=== PATIENT | female | born 1965 | race Hispanic/Latino ===

== ENCOUNTER 2019-04-09 08:55 | Observation (INO) | payer MEDICARE, OTHER ==
[~2019-04-09] VITALS: Ht 160 cm; Wt 146.1 kg
--- OUTSIDE RECORDS SUMMARY | 2019-04-09 08:58 | XMS REPORT ---
Author Author [facility] Address Unknown Phone Unavailable Care Team Providers [facility] [employer] Name Role Phone NIKKORODRIGO ROBERT Unavailable Unavailable LAKEISHA SINGH Unavailable Unavailable Madelyn SEE Unavailable Unavailable MINH HYLTON Unavailable Unavailable Problems This patient has no known problems. Allergies, Adverse Reactions, Alerts This patient has no known allergies or adverse reactions. Medications This patient has no known medications. Results Test Description Test Time Test Comments Text Results Atomic Results Result Comments BASIC METABOLIC PANEL 2018-01-25 05:02:00 SODIUM (BEAKER) (test ovpr=139) 135 meq/L 136-145 POTASSIUM (BEAKER) (test fblh=430) 4.1 meq/L 3.5-5.1 CHLORIDE (BEAKER) (test rtuv=214) 97 meq/L 98-107 CO2 (BEAKER) (test yvuo=838) 26 meq/L 22-29 BLOOD UREA NITROGEN (BEAKER) (test nbzu=068) 58 mg/dL 7-21 CREATININE (BEAKER) (test roln=199) 8.17 mg/dL 0.57-1.25 GLUCOSE RANDOM (BEAKER) (test zsix=441) 145 mg/dL 70-105 CALCIUM (BEAKER) (test bmjl=398) 8.8 mg/dL 8.4-10.2 EGFR (BEAKER) (test kezp=5555) mL/min/1.73 sq m INSUFFICIENT CLINICAL DATA TO CALCULATE ESTIMATED GFR. [id number] 05:01:00* Test Item Value Reference Range Comments PHOSPHORUS (BEAKER) (test zcgh=035) 4.2 mg/dL 2.3-4.7 CBC W/PLT COUNT & AUTO [id number] 04:48:00* Test Item Value Reference Range Comments WHITE BLOOD CELL COUNT (BEAKER) (test mqij=751) 8.0 K/ L 3.5-10.5 RED BLOOD CELL COUNT (BEAKER) (test bbyw=326) 2.95 M/ L 3.93-5.22 HEMOGLOBIN (BEAKER) (test ovcj=027) 9.6 GM/DL 11.2-15.7 HEMATOCRIT (BEAKER) (test lnut=044) 30.5 % 34.1-44.9 MEAN CORPUSCULAR VOLUME (BEAKER) (test hnjz=850) 103.4 fL 79.4-94.8 MEAN CORPUSCULAR HEMOGLOBIN (BEAKER) (test unop=274) 32.5 pg 25.6-32.2 MEAN CORPUSCULAR HEMOGLOBIN CONC (BEAKER) (test hvqj=821) 31.5 GM/DL 32.2-35.5 RED CELL DISTRIBUTION WIDTH (BEAKER) (test zvcz=876) 15.9 % 11.7-14.4 PLATELET COUNT (BEAKER) (test byft=128) 105 K/CU MM 150-450 MEAN PLATELET VOLUME (BEAKER) (test tyap=577) 11.5 fL 9.4-12.3 NUCLEATED RED BLOOD CELLS (BEAKER) (test lvcy=363) 0 /100 WBC 0-0 NEUTROPHILS RELATIVE PERCENT (BEAKER) (test ycze=571) 68 % LYMPHOCYTES RELATIVE PERCENT (BEAKER) (test jqxf=362) 20 % MONOCYTES RELATIVE PERCENT (BEAKER) (test uvvd=273) 10 % EOSINOPHILS RELATIVE PERCENT (BEAKER) (test aoxv=940) 2 % BASOPHILS RELATIVE PERCENT (BEAKER) (test cvpr=522) 0 % NEUTROPHILS ABSOLUTE COUNT (BEAKER) (test qznd=351) 5.41 K/ L 1.56-6.13 LYMPHOCYTES ABSOLUTE COUNT (BEAKER) (test rbso=847) 1.61 K/ L 1.18-3.74 MONOCYTES ABSOLUTE COUNT (BEAKER) (test jsfb=484) 0.76 K/ L 0.24-0.36 EOSINOPHILS ABSOLUTE COUNT (BEAKER) (test kbvr=542) 0.14 K/ L 0.04-0.36 BASOPHILS ABSOLUTE COUNT (BEAKER) (test eszi=388) 0.02 K/ L 0.01-0.08 IMMATURE GRANULOCYTES-RELATIVE PERCENT (BEAKER) (test sgye=5119) 0 % 0-1 RAD, CHEST, 1 VIEW, NON [id number] 06:53:00post-operative day 1Reason for exam:->post TAVRShould this be performed at the bedside?->YesFINAL REPORT Chest one view. Clinical history: post TAVR Comparison: Chest radiograph 01/23/2018. Technique: A single frontal view of the chest was obtained. Findings:The patient is status post TAVR. The aorta is athe rosclerotic. The heart size is stable. There are low lung volumes. There is no focal pulmonary consolidation or pneumothorax. There are small bilateral pleural effusions. Signed: Floresita Ugaldeeport Verified Date/Time: 01/24/2018 0 6:53:47 Reading Location: [address] Transitional Reading Room Electronical ly signed by: FLORESITA UGALDE MD on 01/24/2018 06:53 AM BASIC METABOLIC [id number] 05:59:00* Test Item Value Reference Range Comments SODIUM (BEAKER) (test qmqf=274) 138 meq/L 136-145 POTASSIUM (BEAKER) (test pgve=473) 4.4 meq/L 3.5-5.1 CHLORIDE (BEAKER) (test mamz=079) 100 meq/L 98-107 CO2 (BEAKER) (test kejm=126) 24 meq/L 22-29 BLOOD UREA NITROGEN (BEAKER) (test pvnk=328) 26 mg/dL 7-21 CREATININE (BEAKER) (test cktb=973) 5.77 mg/dL 0.57-1.25 GLUCOSE RANDOM (BEAKER) (test tyqo=708) 125 mg/dL 70-105 CALCIUM (BEAKER) (test dusk=847) 9.6 mg/dL 8.4-10.2 EGFR (BEAKER) (test jwhj=0387) mL/min/1.73 sq m INSUFFICIENT CLINICAL DATA TO CALCULATE ESTIMATED GFR. [id number] 05:58:00* Test Item Value Reference Range Comments MAGNESIUM (BEAKER) (test pfho=886) 2.2 mg/dL 1.6-2.6 CBC W/PLT COUNT & AUTO [id number] 05:34:00* Test Item Value Reference Range Comments WHITE BLOOD CELL COUNT (BEAKER) (test ldaw=265) 8.3 K/ L 3.5-10.5 RED BLOOD CELL COUNT (BEAKER) (test gmvu=066) 3.12 M/ L 3.93-5.22 HEMOGLOBIN (BEAKER) (test xgty=080) 10.0 GM/DL 11.2-15.7 HEMATOCRIT (BEAKER) (test fmjg=351) 31.0 % 34.1-44.9 MEAN CORPUSCULAR VOLUME (BEAKER) (test hbfv=452) 99.4 fL 79.4-94.8 MEAN CORPUSCULAR HEMOGLOBIN (BEAKER) (test oxqu=376) 32.1 pg 25.6-32.2 MEAN CORPUSCULAR HEMOGLOBIN CONC (BEAKER) (test kzfl=138) 32.3 GM/DL 32.2-35.5 RED CELL DISTRIBUTION WIDTH (BEAKER) (test bxsp=293) 15.9 % 11.7-14.4 PLATELET COUNT (BEAKER) (test bczj=944) 125 K/CU MM 150-450 MEAN PLATELET VOLUME (BEAKER) (test viwe=963) 11.4 fL 9.4-12.3 NUCLEATED RED BLOOD CELLS (BEAKER) (test eney=218) 0 /100 WBC 0-0 NEUTROPHILS RELATIVE PERCENT (BEAKER) (test hegg=960) 83 % LYMPHOCYTES RELATIVE PERCENT (BEAKER) (test dzai=275) 9 % MONOCYTES RELATIVE PERCENT (BEAKER) (test ciwu=579) 7 % EOSINOPHILS RELATIVE PERCENT (BEAKER) (test tfts=535) 0 % BASOPHILS RELATIVE PERCENT (BEAKER) (test vayg=904) 1 % NEUTROPHILS ABSOLUTE COUNT (BEAKER) (test gdmw=657) 6.92 K/ L 1.56-6.13 LYMPHOCYTES ABSOLUTE COUNT (BEAKER) (test mlzp=011) 0.75 K/ L 1.18-3.74 MONOCYTES ABSOLUTE COUNT (BEAKER) (test jlpg=143) 0.55 K/ L 0.24-0.36 EOSINOPHILS ABSOLUTE COUNT (BEAKER) (test vcec=690) 0.01 K/ L 0.04-0.36 BASOPHILS ABSOLUTE COUNT (BEAKER) (test lsub=734) 0.05 K/ L 0.01-0.08 IMMATURE GRANULOCYTES-RELATIVE PERCENT (BEAKER) (test etdf=4851) 0 % 0-1 HEPATITIS B SURFACE [id number] 20:10:00* Test Item Value Reference Range Comments HEPATITIS B SURFACE ANTIGEN (2) (BEAKER) (test jwdz=5071) Nonreactive Nonreactive [id number] 15:09:00* Test Item Value Reference Range Comments MAGNESIUM (BEAKER) (test xyou=240) 2.2 mg/dL 1.6-2.6 BASIC METABOLIC [id number] 14:51:00* Test Item Value Reference Range Comments SODIUM (BEAKER) (test rpxh=980) 134 meq/L 136-145 POTASSIUM (BEAKER) (test dyib=952) 4.3 meq/L 3.5-5.1 CHLORIDE (BEAKER) (test qpps=630) 98 meq/L 98-107 CO2 (BEAKER) (test lgkw=061) 25 meq/L 22-29 BLOOD UREA NITROGEN (BEAKER) (test ympt=524) 52 mg/dL 7-21 CREATININE (BEAKER) (test pdsm=940) 9.37 mg/dL 0.57-1.25 GLUCOSE RANDOM (BEAKER) (test efxo=607) 121 mg/dL 70-105 CALCIUM (BEAKER) (test jzdw=044) 8.9 mg/dL 8.4-10.2 EGFR (BEAKER) (test lroe=3405) mL/min/1.73 sq m INSUFFICIENT CLINICAL DATA TO CALCULATE ESTIMATED GFR. RAD, CHEST, 1 VIEW, NON [id number] 13:15:00Reason for exam:->post TAVRShould this be performed at the bedside?->YesFINAL REPORT EXAM: Frontal chest radiograph HISTORY PROVIDED: Post TAVR COMPARISON: 07/27/2017 IMPRESSION:The patient is status post cardiac valve replacement. Central pulmonary vascular congestion is suspected with mild interstitial edema. A small right pleural effusion is noted. Left basilar atelectasis versus scarring is similar to the previous examination. No discernible pneumothorax. The cardiac silhouette remains enlarged. There is atherosclerotic calcification of the aorta. No acute osseous abnormality. Signed: Broderick Smitheport Verified Date/Time: 01/23/2018 13:15:10 Reading Location: [facility] Reading Room -[id number] 11:47:00* Test Item Value Reference Range Comments ACTIVATED CLOTTING TIME (BEAKER) (test tccz=035) 125 sec TESTED AT [facility] [address] [facility] [address] [id number] 11:08:00* Test Item Value Reference Range Comments ACTIVATED CLOTTING TIME (BEAKER) (test njkw=822) 246 sec TESTED AT [facility] [address] [facility] [address] SODIUM NA-STAT [id number] 10:18:00* Test Item Value Reference Range Comments SODIUM (BEAKER) (test wsky=582) 135 meq/L 135-148 GLUCOSE-STAT [id number] 10:17:00* Test Item Value Reference Range Comments GLUCOSE RANDOM (BEAKER) (test ruxc=988) 115 mg/dL 70-110 HGB/HCT (H&H) - STAT [id number] 10:17:00* Test Item Value Reference Range Comments HEMOGLOBIN (BEAKER) (test zkon=460) 10.7 GM/DL 12.0-15.0 HEMATOCRIT (BEAKER) (test xyvk=382) 31.0 % 36.0-45.0 POTASSIUM-STAT [id number] 10:17:00* Test Item Value Reference Range Comments POTASSIUM (BEAKER) (test cwwl=947) 4.1 meq/L 3.6-5.5 CALCIUM, [id number] 10:16:00* Test Item Value Reference Range Comments CALCIUM IONIZED (BEAKER) (test gfsy=171) 1.03 mmol/L 1.12-1.27 PH, BLOOD (BEAKER) (test tkyv=5345) 7.45 BLOOD GAS, [id number] 10:16:00* Test Item Value Reference Range Comments PH ARTERIAL (BEAKER) (test jvwm=716) 7.48 7.35-7.45 PCO2 ARTERIAL (BEAKER) (test wsaa=430) 36 mm Hg 35-45 PO2 ARTERIAL (BEAKER) (test kwzr=497) 219 mm Hg 80-90 O2 SATURATION ARTERIAL (BEAKER) (test ozgg=717) 99.5 % 96.0-97.0 HCO3 ARTERIAL (BEAKER) (test dlxd=053) 26 mmol/L 21-29 BASE EXCESS ARTERIAL (BEAKER) (test kxjy=537) 2.1 mmol/L -2.0-3.0 PATIENT TEMPERATURE (BEAKER) (test geqg=2849) 35.4 FIO2 (BEAKER) (test kldx=7639) 60 POCT-GLUCOSE [id number] 07:34:00* Test Item Value Reference Range Comments POC-GLUCOSE METER (BEAKER) (test ujpx=9749) 145 mg/dL 70-110 TESTED AT [facility] [address] [facility] [address] [id number] 07:27:00* Test Item Value Reference Range Comments POTASSIUM (BEAKER) (test gyhe=416) 4.3 meq/L 3.5-5.1 CT, CTA, [id number] 16:31:00Addendum BeginsREPORT STATUS:A Addendum: I agree with the previously described non vascular findings. Signed: Renee Diaz MDReport Verified Date/Time: 12/08/2017 16:31:22 Reading Location: [place] [id number] Angio Body Reading RoomAddendum EndsFINAL REPORT CT angiography of the thoracoabdominal aorta and pelvic arteries, 08 December 2016 INDICATION: This is a 52-year old female with diagnosis of aortic valve disease, presents for preprocedure TAVR assessment. There is a clinical concern of aortic aneurysm. This study is performed in an attempt to avoid an invasive procedure. TECHNIQUE: Spiral acquisition before and during intravenous contrast administration using a G[employer] CT scanner. Images were obtained before and during the dynamic passage of intravenous contrast material. Multi-planar 3-D volume-rendering reconstruction was performed using an independent workstation interactively by the interpreting physician as well as the 3-D specialist for optimal visualization of the thoracoabdominal aorta, the pelvic arteries as well as its proximal branches. Please refer to the contrast sheet scanned in the EPIC system for the amount and route of contrast given. This exam was performed according to our departmental dose-optimisation programme, which includes automated exposure control, adjustment of the mA and/or kV according to patient size and/or use of iterative reconstruction tech RoomClip. Dose modulation, iterative reconstruction, and/or weight based adjustment of the mA/kV was utilized to reduce the radiation dose to as low as reasonably achievable. FINDINGS: VASCULAR: The central pulmonary artery is at the upper mcnally its of normal in calibre. The cardiac chamber demonstrate normal atrioventricul ar and ventriculoarterial concordance, systemic and pulmonary venous return. In the mid diastolic data set, the left ventricle appears to be prominent. Left atr ial enlargement is identified. Mitral annular calcification is seen in the poste rior and anterior mitral valve annulus. Coronary origins are normal and scattere d coronary artery calcification is present. Patient has a diagnosis of aortic st enosis. Aortic valvular calcification is seen and the Agatston score is 4019. Ao rtic valve area by planimetry is estimated to be approximately 65 sq mm. The aor tic valve is tricuspid. Location of the aortic valvular calcification can be se en in reformatted data set sent to PACS. Regarding the aorta, the aortic root an d ascending thoracic aorta is free of calcification. Some calcification is seen in the proximal descending thoracic aorta and in the descending thoracic aorta. In the abdominal aorta, the infrarenal abdominal aorta, lrvn-ga-bljwyycw circumf erential calcification is identified. No acute aortic pathology is seen and no d issection or contained rupture is identified. Arch vessel branching pattern is n ormal and the visualised arch vessels are seen to be widely patent proximally. O nly minimal calcification seen in the left subclavian artery, and the left subcl hamilton artery, image 80 measure approximately 7 mm in diameter. The right ablatio n artery is also patent with no obstructive lesion identified, and measures appr oximately 8 to 9 mm at image 22. The coeliac axis, SMA, SAMARIA are widely patent. S cresencio left and right renal arteries are seen with eccentric calcific atheroscler osis identified. No stenosis is seen. Left and right renal veins are seen draini ng normally into the IVC. The common iliac, external iliac, common femoral, and the visualised superficial femoral arteries, bilaterally, are widely patent, wit h only minimal nonobstructive calcific atherosclerosis seen in the left and righ t common iliac arteries. Dimensions that may be helpful for TAVR as follows: Th e aortic root and ascending thoracic aorta is free of calcification. The major a nd minor aortic annulus diameter measures 26.4 and 20.6 mm, respectively. The ao rtic annulus perimeter measured 75 mm and the cross-sectional area measures 427 mm2. The aortic annulus diameter at the traditional LVOT and coronal LVOT measur es 20.4 and 25.7 mm, respectively. For reference purpose, per ALLEN S3 brochur e, recommendation are as follows: CT area between 273 to 345 mm2 (20 mm valve); 338 to 430 mm2 (23 mm valve); 430 to 546 mm2 (26 mm valve); 540 to 683 mm2 (29 m m valve). For reference purpose, per [employer] kenya, recommendation are as follows: CT perimeter between 56.5-62.8 mm (23 mm valve); 62.8-72.3 mm ( 26 mm valve); 72.3-81.7 mm (29 mm valve); and 81.7-94.2. mm (34 mm valve). Measu rement was made at 40% reconstruction, with lesser artifacts. Agatston Score is 4090. By planimetry, the aortic valve area is approximately 65 sq mm. The sinus of Valsalva height to the takeoff of the coronary artery origin, RCC (systole): 13.0 mmThe sinus of Valsalva height to the takeoff of the coronary artery origi n, LCC (systole): 10.6 mm The sinus of Valsalva diameter, RCC (systole): 27.1 mm The sinus of Valsalva diameter, LCC (systole): 30.9 mmThe sinus of Valsalva diam eter, NCC (systole): 30.8 mm The sinotubular junction measures 28.1 x 26.1 mm. T he aortic root angulation measures 57.4 degrees. The angle of delivery is approx imately TAJIK 17 CAU 4. The minimal and perpendicular abdominal aortic diameter me asure 11.0 and 12.7 mm, respectively. There is no evidence of thoracoabdomina l aortic aneurysm or stent placement present. The minimum and the perpendicular left common iliac artery measures 8.5 and 8.7 mm, respectively with mild tortuo sity and minimal focal calcific atherosclerosis present. The minimum and the pe rpendicular left external iliac artery measures 6.7 and 7.5 mm, respectively wit h dkzv-xx-yslcmmms tortuosity and no calcific atherosclerosis present. The min imum and the perpendicular left femoral artery measures 7.3 and 7.8 mm, respecti vely with no tortuosity and no calcific atherosclerosis present. The takeoff of the left SFA is at the lower half of the left femoral head, at image 550. The minimum and the perpendicular right common iliac artery measures 7.7 and 7.8 mm, respectively with mild tortuosity and minimal calcific atherosclerosis prese nt. The minimum and the perpendicular right external iliac artery measures 6.8 and 7.6 mm, respectively with wypy-dr-xndabrbc tortuosity and no calcific athe rosclerosis present. The minimum and the perpendicular right femoral artery kvng ures 6.5 and 7.7 mm, respectively with minimal tortuosity and mild calcific at herosclerosis present. The takeoff of the right SFA, is at the mid half of the r ight femoral neck, at image 548. NONVASCULAR: The visualised thyroid gland is u nremarkable though some hypodensity is seen in the right thyroid lobe at image 2 4, measure 6 mm. As this is less than 1 cm, it is considered not clinically sign ificant. The chest wall and mediastinum has no acute abnormalities identified. S mall lymph nodes are seen considered nonspecific in nature. In the lung windows, no obvious endobronchial lesion is seen and no pleural effusion is identified. Some subsegmental atelectatic changes are seen. Overall, no suspicious pulmonary nodule is identified. Some subsegmental atelectatic changes are seen. In the ab domen, the liver and spleen appears unremarkable. The liver edge is smooth. No a bnormal enhancing structure is identified. The adrenal glands are not enlarged. The gallbladder, pancreas appears unremarkable. No acute renal pathology is iden tified and no hydronephrosis or perirenal fluid collection is seen. Renal vascul ar calcification is identified bilaterally. There are number of small cysts iden tified in both kidneys, the numbers are too many to described. Some are too smal l to characterise. The larger one has water density indicating simple in nature. Bowel is not well assessed by CT angiography as enteric contrast is not given. No obvious bowel dilation is identified. Fat-containing inguinal hernia is ident ified in the right. The appendix appears unremarkable. The bladder is not diste nded. The uterus is identified and no abnormal adnexal masses seen though CT is not optimized in the assessment of pelvic gynecological structures. No free air or free fluid seen in the abdomen and pelvis. In the bony windows, no acute bon y pathology is identified and some mild degenerative changes are noted. CONCLUSI ONS: 1. Patient has a diagnosis of aortic stenosis. Aortic valve is tricuspid. Agatston score is over 4000. Aortic valve area is approximately 65 sq mm. Substa ntial mitral annular calcification is seen in the anterior and posterior mitral valve leaflet. No calcification seen in the aortic root and ascending thoracic a carolyn. No ectasia or aneurysmal dilation or acute aortic pathology is identified. Dimensions that may be helpful for TAVR as described above. 2. Normal coronary artery origins. Coronal artery calcification. Left ventricular enlargement. 3. No acute pulmonary pathology. 4. Other findings as described above. 5. An add endum will be dictated by the Terminal Gauger Radiologist regarding the nonvascular f indings. Signed: James Bell Verified Date/Time: 12/08/2017 14:13 :43 Reading Location: [place] [id number] Cardiology MRI , CTA [id number] 16:31:00 Addendum BeginsREPORT STATUS:A Addendum: I agree with hayes padilla previously described non vascular findings. Signed: Renee Diaz Verif ied Date/Time: 12/08/2017 16:31:22 Reading Location: [place] [id number] Angio Body [place] ding RoomAddendum EndsFINAL REPORT CT angiography of the thoracoabdominal aorta and pelvic arteries, 08 December 2016 INDICATION: This is a 52-year old female with diagnosis of aortic valve disease, presents for prepro cedure TAVR assessment. There is a clinical concern of aortic aneurysm. This gwen dy is performed in an attempt to avoid an invasive procedure. TECHNIQUE: Spiral acquisition before and during intravenous contrast administration using a [employer] CT scanner. Images were obtained before and during the dynamic passage of intr avenous contrast material. Multi-planar 3-D volume-rendering reconstruction was performed using an independent workstation interactively by the interpreting afua chery as well as the 3-D specialist for optimal visualization of the thoracoabd ominal aorta, the pelvic arteries as well as its proximal branches. Please refer to the contrast sheet scanned in the EPIC system for the amount and route of co ntrast given. This exam was performed according to our departmental dose-optimis ation programme, which includes automated exposure control, adjustment of the mA and/or kV according to patient size and/or use of iterative reconstruction tech nique. Dose modulation, iterative reconstruction, and/or weight based adjustment of the mA/kV was utilized to reduce the radiation dose to as low as reasonably achievable. FINDINGS: VASCULAR: The central pulmonary artery is at the upper mcnally its of normal in calibre. The cardiac chamber demonstrate normal atrioventricul ar and ventriculoarterial concordance, systemic and pulmonary venous return. In the mid diastolic data set, the left ventricle appears to be prominent. Left atr ial enlargement is identified. Mitral annular calcification is seen in the poste rior and anterior mitral valve annulus. Coronary origins are normal and scattere d coronary artery calcification is present. Patient has a diagnosis of aortic st enosis. Aortic valvular calcification is seen and the Agatston score is 4019. Ao rtic valve area by planimetry is estimated to be approximately 65 sq mm. The aor tic valve is tricuspid. Location of the aortic valvular calcification can be se en in reformatted data set sent to PACS. Regarding the aorta, the aortic root an d ascending thoracic aorta is free of calcification. Some calcification is seen in the proximal descending thoracic aorta and in the descending thoracic aorta. In the abdominal aorta, the infrarenal abdominal aorta, mcpi-vk-akkyeakl circumf erential calcification is identified. No acute aortic pathology is seen and no d issection or contained rupture is identified. Arch vessel branching pattern is n ormal and the visualised arch vessels are seen to be widely patent proximally. O nly minimal calcification seen in the left subclavian artery, and the left subcl hamilton artery, image 80 measure approximately 7 mm in diameter. The right ablatio n artery is also patent with no obstructive lesion identified, and measures appr oximately 8 to 9 mm at image 22. The coeliac axis, SMA, SAMARIA are widely patent. S cresencio left and right renal arteries are seen with eccentric calcific atheroscler osis identified. No stenosis is seen. Left and right renal veins are seen draini ng normally into the IVC. The common iliac, external iliac, common femoral, and the visualised superficial femoral arteries, bilaterally, are widely patent, wit h only minimal nonobstructive calcific atherosclerosis seen in the left and righ t common iliac arteries. Dimensions that may be helpful for TAVR as follows: Th e aortic root and ascending thoracic aorta is free of calcification. The major a nd minor aortic annulus diameter measures 26.4 and 20.6 mm, respectively. The ao rtic annulus perimeter measured 75 mm and the cross-sectional area measures 427 mm2. The aortic annulus diameter at the traditional LVOT and coronal LVOT measur es 20.4 and 25.7 mm, respectively. For reference purpose, per ALLEN Jass padilla, recommendation are as follows: CT area between 273 to 345 mm2 (20 mm valve); 338 to 430 mm2 (23 mm valve); 430 to 546 mm2 (26 mm valve); 540 to 683 mm2 (29 m m valve). For reference purpose, per [employer] k[place], recommendation are as follows: CT perimeter between 56.5-62.8 mm (23 mm valve); 62.8-72.3 mm ( 26 mm valve); 72.3-81.7 mm (29 mm valve); and 81.7-94.2. mm (34 mm valve). Measu rement was made at 40% reconstruction, with lesser artifacts. Agatston Score is 4090. By planimetry, the aortic valve area is approximately 65 sq mm. The sinus of Valsalva height to the takeoff of the coronary artery origin, RCC (systole): 13.0 mmThe sinus of Valsalva height to the takeoff of the coronary artery origi n, LCC (systole): 10.6 mm The sinus of Valsalva diameter, RCC (systole): 27.1 mm The sinus of Valsalva diameter, LCC (systole): 30.9 mmThe sinus of Valsalva diam eter, NCC (systole): 30.8 mm The sinotubular junction measures 28.1 x 26.1 mm. T he aortic root angulation measures 57.4 degrees. The angle of delivery is approx imately TAJIK 17 CAU 4. The minimal and perpendicular abdominal aortic diameter me asure 11.0 and 12.7 mm, respectively. There is no evidence of thoracoabdomina l aortic aneurysm or stent placement present. The minimum and the perpendicular left common iliac artery measures 8.5 and 8.7 mm, respectively with mild tortuo sity and minimal focal calcific atherosclerosis present. The minimum and the pe rpendicular left external iliac artery measures 6.7 and 7.5 mm, respectively wit h gbwa-ui-gnzaloet tortuosity and no calcific atherosclerosis present. The min imum and the perpendicular left femoral artery measures 7.3 and 7.8 mm, respecti vely with no tortuosity and no calcific atherosclerosis present. The takeoff of the left SFA is at the lower half of the left femoral head, at image 550. The minimum and the perpendicular right common iliac artery measures 7.7 and 7.8 mm, respectively with mild tortuosity and minimal calcific atherosclerosis prese nt. The minimum and the perpendicular right external iliac artery measures 6.8 and 7.6 mm, respectively with mvsj-cw-jawlcpzi tortuosity and no calcific athe rosclerosis present. The minimum and the perpendicular right femoral artery kvng ures 6.5 and 7.7 mm, respectively with minimal tortuosity and mild calcific at herosclerosis present. The takeoff of the right SFA, is at the mid half of the r ight femoral neck, at image 548. NONVASCULAR: The visualised thyroid gland is u nremarkable though some hypodensity is seen in the right thyroid lobe at image 2 4, measure 6 mm. As this is less than 1 cm, it is considered not clinically sign ificant. The chest wall and mediastinum has no acute abnormalities identified. S mall lymph nodes are seen considered nonspecific in nature. In the lung windows, no obvious endobronchial lesion is seen and no pleural effusion is identified. Some subsegmental atelectatic changes are seen. Overall, no suspicious pulmonary nodule is identified. Some subsegmental atelectatic changes are seen. In the ab domen, the liver and spleen appears unremarkable. The liver edge is smooth. No a bnormal enhancing structure is identified. The adrenal glands are not enlarged. The gallbladder, pancreas appears unremarkable. No acute renal pathology is iden tified and no hydronephrosis or perirenal fluid collection is seen. Renal vascul ar calcification is identified bilaterally. There are number of small cysts iden tified in both kidneys, the numbers are too many to described. Some are too smal l to characterise. The larger one has water density indicating simple in nature. Bowel is not well assessed by CT angiography as enteric contrast is not given. No obvious bowel dilation is identified. Fat-containing inguinal hernia is ident ified in the right. The appendix appears unremarkable. The bladder is not diste nded. The uterus is identified and no abnormal adnexal masses seen though CT is not optimized in the assessment of pelvic gynecological structures. No free air or free fluid seen in the abdomen and pelvis. In the bony windows, no acute bon y pathology is identified and some mild degenerative changes are noted. CONCLUSI ONS: 1. Patient has a diagnosis of aortic stenosis. Aortic valve is tricuspid. Agatston score is over 4000. Aortic valve area is approximately 65 sq mm. Substa ntial mitral annular calcification is seen in the anterior and posterior mitral valve leaflet. No calcification seen in the aortic root and ascending thoracic a carolyn. No ectasia or aneurysmal dilation or acute aortic pathology is identified. Dimensions that may be helpful for TAVR as described above. 2. Normal coronary artery origins. Coronal artery calcification. Left ventricular enlargement. 3. No acute pulmonary pathology. 4. Other findings as described above. 5. An add endum will be dictated by the Terminal [facility] Radiologist regarding the nonvascular f indings. Signed: James Bell MDReport Verified Date/Time: 12/08/2017 14:13 :43 Reading Location: [place] [address] Cardiology MRI UE [id number] 15:10:00Surgical Pathology Report Case: [id number] Authorizing Provider: Lakeisha Singh MD Collected: 08/02/2017 1257 Ordering Location: [facility] ENDOSCOPY [facility] Received: 08/02/2017 1558 Pathologist: Gabino Souza MD Specimens: A) - Polyp, Colon - Right/Ascending, Ascending colon polyp B) - Polyp, Colon - Left/Descending, Descending colon polyp A. ASCENDING COLON POLYP,BIOPSY- FRAGMENTS OF TUBULAR ADENOMA- NO HIGH-GRADE DYSPLASIA AND NO MALIGNANCY IDENTIFIEDB. LEFT DESCENDING COLON POLYP,BIOPSY- FRAGMENTS OF TUBULAR ADENOMA- NO HIGH-GRADE DYSPLASIA AND NO MALIGNANCY IDENTIFIED Signing Pathologist Direct Phone Line: [phone] of colon polypA. Ascending colon polyp; B. Left descending colon polyp The specimen is received in two containers of formalin both labeled with the pat ient's information.Specimen A labeled "ascending colon polyp" consists of two ro und fragments of interiano tissue measuring 0.3 and 0.4 cm, submitted A1. Specimen B l abeled "left descending colon polyp" consists of a 0.2 cm fragment of interiano tissue , submitted B1. CG/pl A. Sections reveal fragments of tubular adenoma with gland s showing proliferation of adenomatous epithelium with nuclear stratification. The lamina propria has mildly increased chronic inflammation. High-grade dyspla latosha and malignancy are not seen.B. Sections reveal pieces of tubular adenoma wi th glands showing proliferation of adenomatous epithelium with nuclear stratific ation. The lamina propria has mildly increased acute and chronic inflammation. High-grade dysplasia and malignancy are not seen.POCT-GLUCOSE [id number] 13:38:00* Test Item Value Reference Range Comments POC-GLUCOSE METER (BEAKER) (test lxdm=3973) 77 mg/dL 70-110 [address]ED AT [address] [address] HCG, QUANTITATIVE, [id number] 13:04:00* Test Item Value Reference Range Comments GONADOTROPIN, CHORIONIC (HCG) QUANT (BEAKER) (test odwa=213) < mIU/mL 0-10 Non- Females: <10 mIU/mL Females: Gestation Age Reference Range(mIU/mL) 0.2-1 Week 5-50 1-2 Weeks 50-500 2-3 Weeks 100-5,000 3-4 Weeks 500-10,000 4-5 Weeks 1,000-50,000 5-6 Weeks 10,000-100,000 6-8 Weeks 15,000-200,000 2-3 Months 10,000-100,000 POTASSIUM-STAT LAB 2017-08-02 11:50:00* Test Item Value Reference Range Comments POTASSIUM (BEAKER) (test sbfj=295) 3.6 meq/L 3.6-5.5 POCT-GLUCOSE [id number] 11:35:00* Test Item Value Reference Range Comments POC-GLUCOSE METER (BEAKER) (test cczh=2339) 92 mg/dL 70-110 TESTED AT [address] [address] BASIC METABOLIC [id number] 10:17:00* Test Item Value Reference Range Comments SODIUM (BEAKER) (test otnu=306) 137 meq/L 135-148 POTASSIUM (BEAKER) (test yvrs=726) 3.9 meq/L 3.6-5.5 CHLORIDE (BEAKER) (test wxcw=555) 95 meq/L 98-106 CO2 (BEAKER) (test axhe=476) 26 meq/L 24-32 BLOOD UREA NITROGEN (BEAKER) (test eblc=009) 45 mg/dL 10-26 CREATININE (BEAKER) (test zafb=102) 8.73 mg/dL 0.50-1.20 GLUCOSE RANDOM (BEAKER) (test xola=894) 128 mg/dL 70-110 CALCIUM (BEAKER) (test eale=112) 9.3 mg/dL 8.5-10.5 EGFR (BEAKER) (test mskx=5867) mL/min/1.73 sq m INSUFFICIENT CLINICAL DATA TO CALCULATE ESTIMATED GFR. CBC W/PLT COUNT & AUTO [id number] 10:10:00* Test Item Value Reference Range Comments WHITE BLOOD CELL COUNT (BEAKER) (test axxo=685) 7.6 10e3/ L 4.0-10.0 RED BLOOD CELL COUNT (BEAKER) (test iwaw=512) 3.59 10e6/ L 4.00-5.00 HEMOGLOBIN (BEAKER) (test mami=236) 11.4 g/dL 12.0-15.0 HEMATOCRIT (BEAKER) (test wdve=855) 34.2 % 36.0-45.0 MEAN CORPUSCULAR VOLUME (BEAKER) (test mnii=777) 95.4 fL 82.0-99.0 MEAN CORPUSCULAR HEMOGLOBIN (BEAKER) (test fanz=381) 31.8 pg 27.0-33.0 MEAN CORPUSCULAR HEMOGLOBIN CONC (BEAKER) (test yscl=379) 33.3 g/dL 32.0-36.0 RED CELL DISTRIBUTION WIDTH (BEAKER) (test tpds=278) 14.1 % 10.3-14.2 PLATELET COUNT (BEAKER) (test bhtj=541) 166 10e3/ L 150-430 MEAN PLATELET VOLUME (BEAKER) (test nmnt=076) 9.3 fL 6.5-10.5 NEUTROPHILS RELATIVE PERCENT (BEAKER) (test ccqd=929) 76 % LYMPHOCYTES RELATIVE PERCENT (BEAKER) (test aktc=186) 18 % MONOCYTES RELATIVE PERCENT (BEAKER) (test mtyq=579) 5 % EOSINOPHILS RELATIVE PERCENT (BEAKER) (test yevo=031) 1 % BASOPHILS RELATIVE PERCENT (BEAKER) (test mlvb=171) 0 % NEUTROPHILS ABSOLUTE COUNT (BEAKER) (test qnqz=162) 5.78 10e3/ L 1.80-8.00 LYMPHOCYTES ABSOLUTE COUNT (BEAKER) (test cqvz=023) 1.34 10e3/ L 1.48-4.50 MONOCYTES ABSOLUTE COUNT (BEAKER) (test zueb=070) 0.37 10e3/ L 0.00-1.30 EOSINOPHILS ABSOLUTE COUNT (BEAKER) (test jaro=791) 0.08 10e3/ L 0.00-0.50 BASOPHILS ABSOLUTE COUNT (BEAKER) (test mhwt=730) 0.03 10e3/ L 0.00-0.20 CT, BRAIN, WITHOUT [id number] 09:42:00Reason for exam:->DIZZINESSs/p dialysis on tuesday has been feeling dizzy, reports fell on tuesday and hit head. denies loc. What is the patient's sedation requirement?->No SedationFINAL REPORT CT Head without contrast CLINICAL HISTORY: D IZZINESSdizziness TECHNIQUE: Contiguous axial images through the head without co ntrast. This exam was performed according to the departmental dose optimization program which includes automated exposure control, adjustment of the mA and/or k V according to the patient size, and/or use of an iterative reconstruction techn ique. COMPARISON: 07/05/2017 FINDINGS: There is no CT evidence of acute infarct or intracranial hemorrhage. There is mild periventricular and subcortical white matter hypodensity which is nonspecific but compatible with chronic microvascula r ischemic change. There are atherosclerotic calcifications of the intracranial circulation. There is mild generalized sulcal prominence without hydrocephalus, midline shift, or apparent mass effect. A few scattered sulcal calcifications ar e unchanged and possibly cordage sales representative of chronic granulomatous disease. There are no extra-axial fluid collections. The skull is intact. There is a right maxi llary sinus mucus retention cyst or polyp. IMPRESSION: No CT evidence of acute infarct, hemorrhage, or hydrocephalus. Other chronic-appearing findings as descr ibed above are grossly unchanged. Signed: Sandor Senior MDReport Verified Date/T geovany: 07/27/2017 09:42:22 Reading Location: [facility] C0[facility] Neuro Reading Room , CHEST, PA OR AP, 1 [id number] 09:38:00Reason for exam:->DIZZINESSs/p dialysis on tuesday has been feeling dizzy, reports fell on tuesday and hit head. denies loc.FINAL REPORT Chest one view. Clinical history: DIZZINESS Comparison: July 05, 2017 Discussion: A frontal chest is provided. Cardiac silhouette is enlarged. Aorta is mildly calcified. There is mild vascular congestion and interstitial edema. No discrete consolidation is identified. No pneumothorax, or large effusion. Osseous structures demonstrate degenerative changes. Signed: Haley Long Verified Date/Time: 07/27/2017 09:38:11 Reading Location: [facility] Radiology Reading Room B-TYPE NATRIURETIC FACTOR (BNP)2017-07-05 18:59:00* Test Item Value Reference Range Comments B-TYPE NATRIURETIC PEPTIDE (BEAKER) (test rzqn=879) 827 pg/mL 0-100 RAD, CHEST, 2 [id number] 18:32:00Reason for exam:->coughpatient c/o hypertension 207/101,upper abdominal pain with vomiting and coughFINAL REPORT HISTORY : cough. Comparison: 01/21/2009 Comment: Two views of the chest, PA and lateral, were obtained. The cardiac silhouette is enlarged. There is no pleural effusion, pneumothorax or infiltrate. No lytic or blastic abnormalities. There is a tortuous/ectatic thoracic aorta with some atherosclerotic calcification. Multilevel degenerative disc changes of the thora cic spine are seen. Impression: 1. Enlarged cardiac silhouette size. 2. Tortuous /ectatic thoracic aorta. Signed: Leonor Darling MDReport Verified Date/Time: 06/19 18:32:11 Reading Location: [facility] C013W Consult Reading Room Electr onically signed by: LEONOR DARLING M.D. on 07/05/2017 06:[address], BRAIN, WITHOUT [id number] 18:25:00FINAL REPORT CT head without contrast INDICATION: Focal neurologic deficit, severe headache, hypertension. TECHNIQUE: Axial noncontrast CT images through the head were obtained. This exam was performed according to our departmental dose optimization program which includes automated exposure control, adjustment of the mA and/or kV according to patient size and/or use of iterative reconstruction technique. COMPARISON: CT head 01/21/2009 FINDINGS:There is no acute intracranial hemorrhage or mass effect. Microvascular ischemic changes are chronic appearing, including in the right thalamus. A few punctate calcifications may be due to atheroemboli, cavernomas, or granulomatous disease. Please note that CT is insensitive for early or small infarcts. Generalized volume loss and vascular calcifications are noted. There is no hydrocephalus or midline shift. There is right asymmetric sinus mucosal disease with polypoid right maxillary sinus changes. The mastoid air cells are well aerated. Cataract surgery changes are noted with proptotic globes. The calvarium is intact. IMPRESSION: No acute intracranial hemorrhage or mass effect. Chronic appearing microvascular and involutional changes. Chronic polypoid sinus mucosal disease. Consider ENT follow up. If there is persistent concern for acute abnormality, MRI is advised. Signed: Teresa Madison [facility] Verified Date/Time: 07/05/2017 18:25:18 Reading Location: [facility] Radiology Reading Room , [id number] 18:25:00FINAL REPORT HISTORY : Flank pain, recurrent stone disease suspectedno oral contrast; no iv contrast Technique: Multiple axial images of the abdomen and pelvis were performed without the administration of IV contrast from the lung bases to the pubic symphysis. This exam was performed according to our departmental dose optimization program which includes automated exposure co ntrol, adjustment of the mA and/or kV according to patient size and/or use of it erative reconstructive technique. COMPARISON : None COMMENT : The lung bases are clear. There is cardiomegaly. The visualized liver, adrenal glands, gallbladde r, pancreas and duodenum are within normal limits. There are splenic granulomata . The kidneys are atrophic. There are several bilateral renal cysts and too smal l to characterize renal hypodensities but which likely represent cysts. The larg est is seen arising from the lower pole of the left kidney measuring up to 1.8 c m. There is a tiny 2 mm stone in the right kidney. No ureteral stones are identi fied. There is atherosclerotic vascular disease. There is no abdominal, retroper itoneal or pelvic lymphadenopathy. Multilevel degenerative disc changes of the t horacolumbar spine are seen. There is no free fluid or free air in the abdomen o r pelvis. No findings of any bowel obstruction. The small bowel is within normal limits. There is colonic diverticulosis. There are no CT findings to suggest di verticulitis, however. The appendix is visualized and is within normal limits. The kidneys are atrophic. No adnexal masses/lesions are appreciated. There is a small right-sided fat-containing inguinal hernia. No bowel contents are seen wit hin the hernias, however. Impression: Tiny 2 mm right renal stone. No ureter al stones are seen. There is no hydronephrosis/hydroureter. Please see above for details. Signed: Leonor Darlingeport Verified Date/Time: 07/05/2017 18:25:43 Reading Location: [address] Consult Reading Room D [id number] 18:22:00* Test Item Value Reference Range Comments RAPID CKMB (BEAKER) (test bqst=6107) 1.9 ng/mL 0.0-4.3 RAPID [id number] 18:22:00* Test Item Value Reference Range Comments RAPID MYOGLOBIN (BEAKER) (test nljp=3430) > ng/mL <107 RAPID TROPONIN [id number] 18:22:00* Test Item Value Reference Range Comments RAPID TROPONIN I (BEAKER) (test vhnp=9145) < ng/mL <0.05 [id number] 18:20:00* Test Item Value Reference Range Comments PROTIME (BEAKER) (test vhbf=116) 10.7 seconds 9.8-12.0 INR (BEAKER) (test uvhc=803) 1.0 <=5.9 PARTIAL THROMBOPLASTIN TIME (BEAKER) (test navb=126) 24.9 seconds 25.8-34.5 RECOMMENDED COUMADIN/WARFARIN INR THERAPY RANGESSTANDARD DOSE: 2.0 - 3.0 Inclu lissy: PROPHYLAXIS for venous thrombosis, systemic embolization; TREATMENT for rosario ous thrombosis and/or pulmonary embolus.HIGH RISK: Target INR is 2.5-3.5 for pat ients with mechanical heart valves.BASIC METABOLIC [id number] 18:13:00* Test Item Value Reference Range Comments SODIUM (BEAKER) (test mjrh=583) 137 meq/L 135-148 POTASSIUM (BEAKER) (test dnnc=099) 3.8 meq/L 3.6-5.5 CHLORIDE (BEAKER) (test ypui=610) 95 meq/L 98-106 CO2 (BEAKER) (test figi=853) 29 meq/L 24-32 BLOOD UREA NITROGEN (BEAKER) (test asvp=571) 33 mg/dL 10-26 CREATININE (BEAKER) (test eyva=922) 7.27 mg/dL 0.50-1.20 GLUCOSE RANDOM (BEAKER) (test yvde=978) 101 mg/dL 70-110 CALCIUM (BEAKER) (test ellb=107) 9.3 mg/dL 8.5-10.5 EGFR (BEAKER) (test nmkb=8544) mL/min/1.73 sq m INSUFFICIENT CLINICAL DATA TO CALCULATE ESTIMATED GFR. [id number] 18:04:00* Test Item Value Reference Range Comments MAGNESIUM (BEAKER) (test qztk=683) 2.5 mg/dL 1.5-3.0 HEPATIC FUNCTION [id number] 18:04:00* Test Item Value Reference Range Comments TOTAL PROTEIN (BEAKER) (test ilmm=018) 8.5 gm/dL 6.0-8.5 ALBUMIN (BEAKER) (test pekc=7096) 4.4 g/dL 3.5-5.0 BILIRUBIN TOTAL (BEAKER) (test dyur=687) 1.0 mg/dL 0.1-1.2 BILIRUBIN DIRECT (BEAKER) (test okam=323) 0.7 mg/dL 0.0-0.4 ALKALINE PHOSPHATASE (BEAKER) (test fpsk=473) 108 U/L 30-115 AST (SGOT) (BEAKER) (test lipb=179) 25 U/L 5-40 ALT (SGPT) (BEAKER) (test hwwx=440) 36 U/L 5-50 CREATINE KINASE (CK)2017-07-05 18:04:00* Test Item Value Reference Range Comments CREATINE KINASE TOTAL (BEAKER) (test hees=700) 56 U/L 25-235 [id number] 18:04:00* Test Item Value Reference Range Comments LIPASE (BEAKER) (test hufv=491) 90 U/L 40-240 CBC W/PLT COUNT & AUTO [id number] 18:01:00* Test Item Value Reference Range Comments WHITE BLOOD CELL COUNT (BEAKER) (test azya=283) 6.1 10e3/ L 4.0-10.0 RED BLOOD CELL COUNT (BEAKER) (test jhqg=492) 3.81 10e6/ L 4.00-5.00 HEMOGLOBIN (BEAKER) (test gvxu=758) 12.1 g/dL 12.0-15.0 HEMATOCRIT (BEAKER) (test wccc=299) 36.3 % 36.0-45.0 MEAN CORPUSCULAR VOLUME (BEAKER) (test rrzb=658) 95.2 fL 82.0-99.0 MEAN CORPUSCULAR HEMOGLOBIN (BEAKER) (test dstf=184) 31.8 pg 27.0-33.0 MEAN CORPUSCULAR HEMOGLOBIN CONC (BEAKER) (test afmv=958) 33.4 g/dL 32.0-36.0 RED CELL DISTRIBUTION WIDTH (BEAKER) (test vlri=815) 14.2 % 10.3-14.2 PLATELET COUNT (BEAKER) (test rsgd=409) 181 10e3/ L 150-430 MEAN PLATELET VOLUME (BEAKER) (test sjxk=646) 9.1 fL 6.5-10.5 NEUTROPHILS RELATIVE PERCENT (BEAKER) (test zqfw=735) 65 % LYMPHOCYTES RELATIVE PERCENT (BEAKER) (test slpl=180) 27 % MONOCYTES RELATIVE PERCENT (BEAKER) (test rsbi=762) 7 % EOSINOPHILS RELATIVE PERCENT (BEAKER) (test kiyd=823) 1 % BASOPHILS RELATIVE PERCENT (BEAKER) (test bruk=917) 0 % NEUTROPHILS ABSOLUTE COUNT (BEAKER) (test ruyz=277) 3.93 10e3/ L 1.80-8.00 LYMPHOCYTES ABSOLUTE COUNT (BEAKER) (test syir=844) 1.61 10e3/ L 1.48-4.50 MONOCYTES ABSOLUTE COUNT (BEAKER) (test bdwk=585) 0.41 10e3/ L 0.00-1.30 EOSINOPHILS ABSOLUTE COUNT (BEAKER) (test bskv=694) 0.08 10e3/ L 0.00-0.50 BASOPHILS ABSOLUTE COUNT (BEAKER) (test atko=028) 0.02 10e3/ L 0.00-0.20
--- OUTSIDE RECORDS SUMMARY | 2019-04-09 08:58 | XMS REPORT | Clinical Summary ---
Author Author [facility] Address Unknown Phone Unavailable Care Team Providers Care On Site Coordinator Name Role Phone Sharpless PCP Allergies No Known Allergies Medications End Date Status Medication Sig Dispensed Refills Start Date Active sevelamer (RENVELA) 800 Take 3,200 mg 0 mg tablet by mouth 3 (three) times daily with meals AND ONE TAB (800 MG) WITH SNACKS. Active carvedilol (COREG) 12.5 Take 12.5 mg 0 MG tablet by mouth 2 (two) times daily with breakfast and dinner PT STATES TAKES ONLY 6.25 MG (1/2 OF PRESCRIBED DOSE). Active hydrALAZINE (APRESOLINE) Take 50 mg by 0 50 MG tablet mouth 2 (two) times daily . Active atorvastatin (LIPITOR) 80 Take 80 mg by 0 MG tablet mouth daily. Active BABY ASPIRIN ORAL Take 81 mg by 0 mouth daily . Active brimonidine (ALPHAGAN) 1 drop 2 0 0.2 % ophthalmic solution (two) times daily. Active latanoprost (XALATAN) Place 1 drop 0 0.005 % ophthalmic into both solution eyes nightly. 01/24/2019 clopidogrel (PLAVIX) 75 Take 1 tablet 90 tablet 1 201 mg tablet (75 mg total) 8 by mouth daily. Active Problems Problem Noted Date Severe aortic stenosis 01/23/2018 S/p TAVR (transcatheter aortic valve replacement), bioprosthetic 26mm 01/23/2018 Mcdonnell Suleiman 3 01/23/2018 Type 2 diabetes mellitus with renal manifestations 01/18/2018 Aortic stenosis Hypertension Hyperlipidemia Dialysis patient ESRD (end stage renal disease) on dialysis Overview: MWF HD via Left Arm AV Fistula ESRD on hemodialysis Family History Medical History Relation Name Comments Diabetes Father Diabetes Mother Relation Name Status Comments Father Mother Social History Date Tobacco Use Types Packs/Day Years Used Never Smoker Smokeless Tobacco: Never Used Alcohol Use Drinks/Week oz/Week Comments No Sex Assigned at Date Recorded Not on file Industry Job Start Date Occupation Not on file Not on file Not on file Travel End Travel History Travel Start No recent travel history available. Last Filed Vital Signs Not on file Plan of Treatment Not on file Implants Device Identifier Shelf Expiration Date Model / Serial / Lot Implanted Type Area Manufactur er 10/05/2019 [id number] / [id number] / Valve Heart Suleiman 3 26mm [id number] Valves Aorta MCDONNELL - [id number] LIFESCI Implanted: Qty: 1 on 01/23/2018 by Santos Mcdonald MD Results Not on fileafter 04/08/2018 Insurance Payer Benefit Subscriber ID Type Phone Address Plan / Group MEDICARE MEDICARE A xxxxxxxxxx Medicare B CIGNA - MGD CARE CIGNA COH xxxxxxxxxxx HMO/POS NETWORK Advance Directives Patient has advance care planning documents, and code status on file. For more i nformation, please contact: [facility] [address] [place] [address] Date Inactivated Comments Code Status Date Activated 01/25/2018 11:36 AM Full Code 01/23/2018 6:31 AM This code status was determined by: Patient
--- OUTSIDE RECORDS SUMMARY | 2019-04-09 08:58 | XMS REPORT | Clinical Summary ---
Author Author [facility] Organization [facility] Address Unknown Phone Unavailable Care Team Providers Care Card Checker Name Role Phone Marshal Howe MD PCP Allergies No Known Allergies Medications End Date Status Medication Sig Dispensed Refills Start Date Active amLODIPine (NORVASC) 10 Take 10 mg by 0 MG tablet mouth daily. Active atorvastatin (LIPITOR) 80 Take 80 mg by 0 MG tablet mouth daily. Active carvedilol (COREG) 12.5 Take by mouth 0 MG tablet 2 (two) times a day with meals. Active hydrALAZINE (APRESOLINE) Take 50 mg by 0 50 MG tablet mouth 2 (two) times a day. Active sevelamer (RENVELA) 800 Take 3,200 mg 0 mg tablet by mouth 3 (three) times a day with meals. 4 with meals and 1 with snacks Active aspirin (ECOTRIN) 81 MG Take 81 mg by 0 enteric coated tablet mouth daily. Active clopidogrel (PLAVIX) 75 Take 75 mg by 0 mg tablet mouth daily. Active Problems Patient Care Coordination Note S/P TAVR - 01/23/2018 On Aspirin 81mg and Plavix 75mg Problem Noted Date Anemia CHF (congestive heart failure) Coronary artery disease Type 2 diabetes mellitus ESRD (end stage renal disease) on dialysis Encounters Care Team Description Date Type Specialty Keerthi Gray MA Requesting Update 12/13/2018 Telephone Transplant Roma Coronel LCSW 05/29/2018 Documentation Transplant Mike Mcdonald RN 05/10/2018 Documentation Transplant Mane Astorga TXP - MCR AB & MANDY HMO - RENAL TXP APPRVL 04/27/2018 Documentation Transplant Nikita Bean MD ESRD (end stage renal disease) 04/25/2018 Hospital Procedural Cardiology Encounter Nikita Bean MD ESRD (end stage renal disease) 04/25/2018 Hospital Radiology Encounter Nikita Bean MD ESRD (end stage renal disease) 04/25/2018 Hospital Radiology Encounter Nikita Bean MD ESRD (end stage renal disease) 04/25/2018 Hospital Transplant Encounter Brodie Rahman MD 04/25/2018 Hospital Transplant Encounter Brodie Rahman MD 04/25/2018 Hospital Transplant Encounter Nikita Bean MD ESRD (end stage renal disease) 04/25/2018 Hospital Transplant Encounter Nikita Bean MD 04/24/2018 Lab Lab Nikita Bean MD 04/23/2018 Lab Lab Nikita Bean MD 04/22/2018 Lab Lab Caryn Harrell Appointment 04/13/2018 Telephone Transplant Chely Marvin RN 04/10/2018 Orders Only Transplant after 04/08/2018 Family History Medical History Relation Name Comments Diabetes Brother Diabetes Father Diabetes Mother Diabetes Sister Diabetes Sister Relation Name Status Comments Brother Father (Age 57) Mother (Age 52) Sister 59 Sister (Age 48) Social History Date Tobacco Use Types Packs/Day Years Used Never Smoker Smokeless Tobacco: Never Used Alcohol Use Drinks/Week oz/Week Comments No Sex Assigned at Date Recorded Not on file Industry Job Start Date Occupation Not on file Not on file Not on file Travel End Travel History Travel Start No recent travel history available. Last Filed Vital Signs Time Taken Vital Sign Reading 04/25/2018 2:39 PM CDT Blood Pressure 139/78 04/25/2018 7:42 AM CDT Pulse 98 04/25/2018 7:40 AM CDT Temperature 36.3 C (97.4 F) 04/25/2018 7:42 AM CDT Respiratory Rate 16 04/25/2018 7:42 AM CDT Oxygen Saturation 98% - Inhaled Oxygen - Concentration 04/25/2018 7:40 AM CDT Weight 84.8 kg (187 lb) 04/25/2018 7:40 AM CDT Height 160 cm (5' 3") 04/25/2018 7:40 AM CDT Body Mass Index 33.13 Plan of Treatment Health Maintenance Due Date Last Done Comments DIABETIC RETINAL EYE EXAM 1965 DIABETIC FOOT EXAM 1973 URINE MICROALBUMIN 1973 BREAST CANCER SCREENING 2013 COLONOSCOPY SCREENING 2013 SHINGLES VACCINES (#1) 2013 INFLUENZA VACCINE 04/19/2019 06/22/2017, 07/08/2015 Implants Device Identifier Shelf Expiration Date Model / Serial / Lot Implanted Type Area Manufactur er [id number] / / Clip Ligtng Weck Hemoclip Plus W/ Medical Left: Arm, WECK Tape Ti Sm - [id number] Clips for Upper CLOSURE Implanted: 03/18/2016 (Quantity not Internal SYSTEMS on file) Use [id number] / / Clip [employer] Weck Hemoclip Plus W/ Medical Left: Arm, TELEFLEX Tape Ti Med - [id number] Clips for Upper MEDICAL Implanted: 03/18/2016 (Quantity not Internal on file) Use Procedures Comments Procedure Name Priority Date/Time Associated Diagnosis ECHOCARDIOGRAM 2D Routine 04/25/2018 ESRD (end stage renal COMPLETE W MMODE SPECTRAL 3:15 PM CDT disease) COLOR DOPPLER (57079) CT ANGIOGRAM ABDOMEN Routine 04/25/2018 ESRD (end stage renal PELVIS W AND OR WO 1:15 PM CDT disease) CONTRAST PARATHYROID HORMONE Routine 04/25/2018 ESRD (end stage renal 11:00 AM CDT disease) XR CHEST 2 VW Routine 04/25/2018 ESRD (end stage renal 9:30 AM CDT disease) TB T-SPOT Routine 04/25/2018 ESRD (end stage renal 8:50 AM CDT disease) HEPATITIS C VIRUS Routine 04/25/2018 ESRD (end stage renal QUANTITATIVE BY PCR 8:45 AM CDT disease) HEMOGLOBIN A1C Routine 04/25/2018 ESRD (end stage renal 8:30 AM CDT disease) PARTIAL THROMBOPLASTIN Routine 04/25/2018 ESRD (end stage renal TIME (PTT) 8:30 AM CDT disease) PROTHROMBIN TIME WITH INR Routine 04/25/2018 ESRD (end stage renal 8:30 AM CDT disease) HC COMPLETE BLD COUNT Routine 04/25/2018 ESRD (end stage renal W/AUTO DIFF 8:30 AM CDT disease) ECG 12-LEAD Routine 04/25/2018 ESRD (end stage renal 7:57 AM CDT disease) C1Q CLASS 1 & 2 ANTIBODY Routine 04/25/2018 7:31 AM CDT SAB CLASS 1 & 2 WITH Routine 04/25/2018 DILUTIONS 7:31 AM CDT HLA AUTOLOGOUS CROSSMATCH Routine 04/25/2018 7:31 AM CDT ZZESTIMATED GFR Routine 04/25/2018 7:31 AM CDT NARENDRA-BLACK VIRUS Routine 04/25/2018 ESRD (end stage renal ANTIBODY TEST 7:31 AM CDT disease) CYTOMEGALOVIRUS AB, IGM Routine 04/25/2018 ESRD (end stage renal 7:31 AM CDT disease) CYTOMEGALOVIRUS AB, IGG Routine 04/25/2018 ESRD (end stage renal 7:31 AM CDT disease) LDH Routine 04/25/2018 ESRD (end stage renal 7:31 AM CDT disease) PHOSPHORUS LEVEL Routine 04/25/2018 ESRD (end stage renal 7:31 AM CDT disease) TRIGLYCERIDES Routine 04/25/2018 ESRD (end stage renal 7:31 AM CDT disease) CHOLESTEROL Routine 04/25/2018 ESRD (end stage renal 7:31 AM CDT disease) C-PEPTIDE Routine 04/25/2018 ESRD (end stage renal 7:31 AM CDT disease) SYPHILIS TREPONEMAL IGG Routine 04/25/2018 ESRD (end stage renal 7:31 AM CDT disease) HEPATITIS C ANTIBODY Routine 04/25/2018 ESRD (end stage renal 7:31 AM CDT disease) HEPATITIS B SURFACE AB, Routine 04/25/2018 ESRD (end stage renal QUANTITATIVE 7:31 AM CDT disease) HEPATITIS B SURFACE Routine 04/25/2018 ESRD (end stage renal ANTIGEN 7:31 AM CDT disease) HEPATITIS B SURFACE Routine 04/25/2018 ESRD (end stage renal ANTIBODY 7:31 AM CDT disease) HEPATITIS B CORE ANTIBODY Routine 04/25/2018 ESRD (end stage renal TOTAL 7:31 AM CDT disease) COMPREHENSIVE METABOLIC Routine 04/25/2018 ESRD (end stage renal PANEL 7:31 AM CDT disease) OCCULT BLOOD, STOOL Routine 04/24/2018 8:00 AM CDT OCCULT BLOOD, STOOL Routine 04/23/2018 8:00 AM CDT OCCULT BLOOD, STOOL Routine 04/22/2018 8:00 AM CDT after 04/08/2018 Results * Echocardiogram complete w contrast and 3D if needed (04/25/2018 3:15 PM CDT) Specimen Narrative Performed At [facility] Echocardiography Report [id number]Name:SUNG SIMPSON Pat.ID:[id number] .Date: 04/25/2018Refer.MD:NIKITA BEAN MD Exam Time: 2:40:00 PMStudy Type:Routine Echo Height:64inWeight:187lb BSA: 1.9 n5DJDZnv:1965,52Y Sex: FEMALEBP:139/78 HR:90 bpmSonogrphr: Yael Demarco RDCS Pat. Stat.:OutpatientStudy Status:Final Echo Event ID:[id number] Order ID:[id number] Reason for Study:Renal Transplant Evaluation History / Clinical:Diabetes, Hypertension, Obesity Procedures:2D Echo, Colorflow Doppler Race: SUMMARY: LV EF is normal. RV systolic function is normal. Bioprosthetic TAVR aortic valve. Normal prosthetic valve velocity and gradient. Mild mitral stenosis. FINDINGS: LV: LV size is normal. There is severe concentric LV hypertrophy.LV EF is normal. Overall wall motion is lower limitsof normal. Estimated EF is 60-64%. RV: RV size is normal. RV systolic function is normal. LA: LA volume is severely enlarged. RA: RA size is normal. AO: Aortic root diameter is upper limits of normal in size. DOROTHY: No pericardial effusion. AV: Bioprosthetic TAVR aortic valve. Normal prosthetic valve velocityand gradient. Transcatheter AV Doppler velocity indexis 0.55 (normal >0.50). MV: Severe mitral annular calcification. Mild mitral stenosis. Estimatedmean mitral valve gradient 5 mmHg at a heart rate of67 b/min. PV: Pulmonic valve not well seen. TV: No structural TV abnormalities noted. Other:Insufficient TR jet to estimate PA systolic pressure. MEASUREMENTS: 2D Parasternal Long Larue LVOT 2.1 cmLA Ds4.1 cm LVIDd5 cmIndex2.6 cm/m Ao Rtd 3.9 cm Index2.1 cm/m LVIDs3.2 cmLV Esqy061.3 g(87-129) LV%fs 34.6 % LVM Uitfl454.3 g/m2 IVSd 1.6 cmRWT0.7 LVPWd1.7 cm LA Sng Plane LA Area 32.9 cm2(8.8-23.4) LA Vol 129 ml Index67.9 ml/m LA LngAx 6.8 cm RA Sng Plane RA Area 14.3 cm2(8.3-19.5) RA Vol33.5 ml Index17.6 ml/m RA LngAx 5.3 cm DOPPLER AV For Flow/AMENA AV pkVel 279.5 cm/s (100-170) AV AC/ET 0.2 AV mnVel 171 cm/Vladimir TVI62.8 cm AV pkPG 31.2 mmHgAVpkAcRt 8973.1 cm/s2 AV Mean G 14.5 mmHgAV CjId201 cm/s2 AV AC 77 msec (83-118) AV Area1.9 cm2(3-5) AV ET367 msec LVOT For Flow LVOT Area3.5 cm2 LVOT SV120.6 ml NULExzOdp819.4 cm/sHR67.1 bpm LVOTpkPG 7.3 mmHgLVOT CO8.1 l/min LVOTmnPG 4.1 mmHgLVOT CI4.3 l/m/m2 LVOT TVI34.8 cm MV For Flow/Valve Assess MV Area P1/2t1.9 cm2(4-6)MV Mean G5.5 mmHg MV pkVel 190.4 cm/sMV Dec T 332 msec MV pkPG 14.5 mmHgMV TVI53.1 cm Signed 04/26/2018 02:50 PM Scot iHlton M.D. Procedure Note Interface, Radiology Results In - 04/26/2018 2:50 PM CDT Echocardiography Report [id number] [place] [address] Pat.Name: SUNG SIMPSON Pat.ID: [id number] .Date: 04/25/2018 Refer.MD: NIKITA BEAN MD Exam Time: 2:40:00 PM Study Type:Routine Echo Height: 64in Weight: 187lb BSA: 1.9 m2 Age: 6 1965,52Y Sex: FEMALE BP: 139/78 HR: 90 bpm Sonogrphr: Yael Demarco RDCS Pat. Stat.:Outpatient Study Status:Final Echo Event ID:[id number] Order ID: [id number] Reason for Study:Renal Transplant Evaluation History / Clinical:Diabetes, Hypertension, Obesity Procedures:2D Echo, Colorflow Doppler Race: SUMMARY: LV EF is normal. RV systolic function is normal. Bioprosthetic TAVR aortic valve. Normal prosthetic valve velocity and gradient. Mild mitral stenosis. FINDINGS: LV: LV size is normal. There is severe concentric LV hypertrophy. LV EF is normal. Overall wall motion is lower limits of normal. Estimated EF is 60-64%. RV: RV size is normal. RV systolic function is normal. LA: LA volume is severely enlarged. RA: RA size is normal. AO: Aortic root diameter is upper limits of normal in size. DOROTHY: No pericardial effusion. AV: Bioprosthetic TAVR aortic valve. Normal prosthetic valve velocity and gradient. Transcatheter AV Doppler velocity index is 0.55 (normal >0.50). MV: Severe mitral annular calcification. Mild mitral stenosis. Estimated mean mitral valve gradient 5 mmHg at a heart rate of 67 b/min. PV: Pulmonic valve not well seen. TV: No structural TV abnormalities noted. Other: Insufficient TR jet to estimate PA systolic pressure. MEASUREMENTS: 2D Parasternal Long Larue LVOT 2.1 cm LA Ds 4.1 cm LVIDd 5 cm Index 2.6 cm/m Ao Rtd 3.9 cm Index 2.1 cm/m LVIDs 3.2 cm LV Mass 367.3 g (87-129) LV%fs 34.6 % LVM Index 193.3 g/m2 IVSd 1.6 cm RWT 0.7 LVPWd 1.7 cm LA Sng Plane LA Area 32.9 cm2 (8.8-23.4) LA Vol 129 ml Index 67.9 ml/m LA LngAx 6.8 cm RA Sng Plane RA Area 14.3 cm2 (8.3-19.5) RA Vol 33.5 ml Index 17.6 ml/m RA LngAx 5.3 cm DOPPLER AV For Flow/AMENA AV pkVel 279.5 cm/s (100-170) AV AC/ET 0.2 AV mnVel 171 cm/s AV TVI 62.8 cm AV pkPG 31.2 mmHg AVpkAcRt 8973.1 cm/s2 AV Mean G 14.5 mmHg AV DeRt 761 cm/s2 AV AC 77 msec (83-118) AV Area 1.9 cm2 (3-5) AV ET 367 msec LVOT For Flow LVOT Area 3.5 cm2 LVOT SV 120.6 ml LVOTpkVel 135.4 cm/s HR 67.1 bpm LVOTpkPG 7.3 mmHg LVOT CO 8.1 l/min LVOTmnPG 4.1 mmHg LVOT CI 4.3 l/m/m2 LVOT TVI 34.8 cm MV For Flow/Valve Assess MV Area P1/2t 1.9 cm2 (4-6) MV Mean G 5.5 mmHg MV pkVel 190.4 cm/s MV Dec T 332 msec MV pkPG 14.5 mmHg MV TVI 53.1 cm Signed 04/26/2018 02:50 PM Scot Hilton M.D. Performing Organization Address City/State/[facility] Phone Number [facility] [address] [place] [address] * CTA Abdomen Pelvis W And Or Wo Contrast (04/25/2018 1:15 PM CDT) Specimen Narrative Performed At EXAMINATION:CT ANGIOGRAM ABDOMEN PELVIS W AND OR WO CONTRAST RADIANT CLINICAL HISTORY:N18.6 End stage renal disease, transplant evaluation update TECHNIQUE: Multiple CT angiographic images of the abdomen and pelvis were obtained during intravenous administration of contrast. Multiple computerized reformatted images as well as 3-D volume rendered images were also obtained. CT imaging was performed with iterative reconstruction techniques and/or automated exposure control to reduce radiation dose. COMPARISON:None. FINDINGS: Small hiatal hernia is present. Status post TAVR graft placement. The kidneys are atretic with multiple simple appearing cysts bilaterally. A few scattered colonic diverticula are seen, although without surrounding inflammatory changes to indicate acute diverticulitis. The abdominal aorta is of normal course, caliber, and contour without aneurysmal dilatation or focal dissection. Scattered vascular calcifications are seen. Immediate aortic branch vessels to include the celiac, superior mesenteric, bilateral single renal, and inferior mesenteric arteries are well-opacified. The pelvic vasculature to include the bilateral common iliac, internal iliac, and external iliac arteries are also of normal diameter with a few scattered vascular calcifications. A fat-containing right inguinal hernia is present. Remainder of the visualized aspects of the lung bases, liver, stomach, pancreas, adrenals, spleen, gallbladder, GI tract, bony and soft tissue structures is unremarkable, apart from degenerative changes of the spine. IMPRESSION: Mild diverticulosis. [id number] Procedure Note Hm Interface, Radiology Results Incoming - 04/25/2018 1:58 PM CDT EXAMINATION: CT ANGIOGRAM ABDOMEN PELVIS W AND OR WO CONTRAST CLINICAL HISTORY: N18.6 End stage renal disease, transplant evaluation update TECHNIQUE: Multiple CT angiographic images of the abdomen and pelvis were obtained during intravenous administration of contrast. Multiple computerized reformatted images as well as 3-D volume rendered images were also obtained. CT imaging was performed with iterative reconstruction techniques and/or automated exposure control to reduce radiation dose. COMPARISON: None. FINDINGS: Small hiatal hernia is present. Status post TAVR graft placement. The kidneys are atretic with multiple simple appearing cysts bilaterally. A few scattered colonic diverticula are seen, although without surrounding inflammatory changes to indicate acute diverticulitis. The abdominal aorta is of normal course, caliber, and contour without aneurysmal dilatation or focal dissection. Scattered vascular calcifications are seen. Immediate aortic branch vessels to include the celiac, superior mesenteric, bilateral single renal, and inferior mesenteric arteries are well-opacified. The pelvic vasculature to include the bilateral common iliac, internal iliac, and external iliac arteries are also of normal diameter with a few scattered vascular calcifications. A fat-containing right inguinal hernia is present. Remainder of the visualized aspects of the lung bases, liver, stomach, pancreas, adrenals, spleen, gallbladder, GI tract, bony and soft tissue structures is unremarkable, apart from degenerative changes of the spine. IMPRESSION: Mild diverticulosis. [facility]-[id number] Performing Organization Address City/[facility]/Zipcode Phone Number [facility] [address] [place] [address] * Parathyroid hormone (04/25/2018 11:00 AM CDT) PTH 320 (H) 15 - 65 pg/mL [facility] DEPARTMENT OF PATHOLOGY AND GENOMIC MEDICINE Specimen Blood Performing Organization Address [facility]/Zipcode Phone Number [facility] DEPARTMENT OF [address] [place] [address] PATHOLOGY AND GENOMIC MEDICINE * XR Chest 2 Vw (04/25/2018 9:30 AM CDT) Specimen Narrative Performed At EXAMINATION:XR CHEST 2 VW RADIANT CLINICAL HISTORY:N18.6 End stage renal disease, transplant evaluation update COMPARISON:None. IMPRESSION: The cardiomediastinal silhouette and central vasculature are within normal limits. Atherosclerotic calcifications in the thoracic aorta which is tortuous. The lungs are clear. Degenerative changes in the spine. [facility]-[id number] Procedure Note Interface, Radiology Results Incoming - 04/25/2018 9:39 AM CDT EXAMINATION: XR CHEST 2 VW CLINICAL HISTORY: N18.6 End stage renal disease, transplant evaluation update COMPARISON: None. IMPRESSION: The cardiomediastinal silhouette and central vasculature are within normal limits. Atherosclerotic calcifications in the thoracic aorta which is tortuous. The lungs are clear. Degenerative changes in the spine. [facility]-[id number] Performing Organization Address [facility]/Zipcode Phone Number [facility] [address] [place] [address] * TB T-SPOT (04/25/2018 8:50 AM CDT) TB T-SPOT SEE NOTE [facility] DEPARTMENT Comment: OF PATHOLOGY T-SPOT TUBERCULOSIS AND GENOMIC Nil Control: 0 MEDICINE Panel A: 0 Panel B: 0 Positive Control: TMTC Result:NEGATIVE NOTE: TMTC INDICATES TOO MANY SPOTS TO COUNT SAT INDICATES THE WELL WAS SATURATED RESULTS INTERPRETATION: RESULTS ARE NEGATIVE WHEN (PANEL A-NIL) OR (PANEL B-NIL) <=4 SPOTS, INCLUDING VALUES LESS THAN ZERO. RESULTS ARE POSITIVE WHEN (PANEL A-NIL) OR (PANEL B-NIL) >=8 SPOTS RESULTS ARE BORDERELINE WHEN EITHER (PANEL A-NIL) OR (PANEL B-NIL)=5,6,0R 7. THE TEST IS INVALID WHEN EITHER OF THE FOLLOWING CONDITIONS IS MET: 1.) THE NIL CONTROL HAS >10 SPOTS 2.) THE MITOGEN (POSITIVE CONTROL) HAS <20 SPOTS AND BOTH (PANEL A-NIL) AND (PANEL B-NIL) <=4 SPOTS. M. TUBERCULOSIS INFECTION UNLIKELY, BUT CANNOT BE EXCLUDED ESPECIALLY WHEN: 1. ANY ILLNESS IS CONSISTENT WITH TB DISEASE. 2. LIKELIHOOD OF PROGRESSION TO DISEASE (e.g. DUE TO IMMUNOSUPPRESSION) IS INCREASED. LIMITATIONS: DIAGNOSING OR EXCLUDING TUBERCULOSIS DISEASE, AND ASSESSING THE PROBABILITY OF LTBI, REQUIRES A COMBINATION OF EPIDEMIOLOGICAL, HISTORICAL, MEDICAL, AND DIAGNOSTIC FINDINGS THAT SHOULD BE TAKEN INTO ACCOUNT WHEN INTERPRETING T-SPOT.TB REFER TO THE MOST RECENT CDC GUIDANCE (HTTP: //WWW.CDC.GOV/NCHSTP/TB) FOR DETAILED RECOMMENDATIONS ABOUT DIAGNOSING TB INFECTION (INCLUDING DISEASE) AND SELECTING PERSONS FOR TESTING. 1.) A FALSE NEGATIVE RESULT CAN BE CAUSED BY INCORRECT BLOOD SAMPLE COLLECTION OR IMPROPER HANDLING OF THE SPECIMEN, AFFECTING LYMPHOCYTE FUNCTION 2.) THE PERFORMANCE OF T-SPOT.TB HAS NOT BEEN ADEQUATELY EVALUATED WITH SPECIMENS FROM INDIVIDUALS YOUNGER THANAGE 17 YEARS, IN WOMEN, AND IN PATIENTS WITH HEMOPHILIA. 3-) A FALSE POSITIVE RESULT WAS OBTAINED FOR T-SPOT.TB WHEN TESTED IN SUBJECTS WITH M. XENOPI, M. KANSASII, AND M. GORDONAE.WHILE ESAT-6 AND CFP-10 ANTIGENS ARE ABSENT FROM BCG STRAINS OF M. BOVIS AND FROM MOST ENVIRONMENTAL MYCOBACTERIA, IT IS POSSIBLE THAT A POSITIVE T-SPOT.TB RESULT MAY BE DUE TO INFECTION WITH M. KANSASII, M. SZULGAI, M. GORDONAE, OR M. MARINUM. ALTERNATIVE TESTS WOULD BE REQUIRED IF THESE INFECTIONS ARE SUSPECTED. 4.) A NEGATIVE TEST RESULT DOES NOT EXCLUDE THE POSSIBILITY OF EXPOSURE TO, OR INFECTION WITH, M. TUBERCULOSIS. PATIENTS WITH RECENT EXPOSURE TO TB INFECTED INDIVIDUALS EXHIBITING A NEGATIVE T-SPOT.TB RESULT SHOULD BE CONSIDERED FOR RETESTING WITHIN 6 WEEKS OR IF OTHER RELEVANT CLINICAL SYMPTOMS INDICATE POSSIBLE INFECTION. 5.) A POSITIVE TEST RESULT DOES NOT RULE IN ACTIVE TB DISEASE; OTHER TESTS SHOULD BE PERFORMED TO CONFIRM THE DIAGNOSIS OF ACTIVE TB DISEASE SUCH SPUTUM SMEAR AND CULTURE, PCR AND CHEST RADIOGRAPHY. 6.) T-SPOT.TB TEST HAS NOT BEEN EVALUATED IN SUBJECTS WHO HAVE RECEIVED >1 MONTH OF ANTI-TB THERAPY. 7. ) REFRIGERATED AND FROZEN SAMPLES ARE NOT RECOMMENDED FOR USE WITH T=SPOT.TB TEST. Performed by: [facility] Molecular Tuberculosis Laboratory [facility] ([id number]) [place], [place] [address] Specimen Blood Performing Organization Address City/[facility]/Zipcode Phone Number [facility] DEPARTMENT [address] [address] PATHOLOGY AND GENOMIC MEDICINE * Hepatitis C virus quantitative by PCR (04/25/2018 8:45 AM CDT) [facility] Hepatitis C Not-Detected Not-Detected IU/mL [facility] DEPARTMENT quantitative, OF PATHOLOGY PCR AND GENOMIC MEDICINE Hepatitis C See link below for PDF Lab [facility] DEPARTMENT quantitative, ReportComment: Case Number: OF PATHOLOGY PCR [id number] AND GENOMIC MEDICINE Specimen Blood Performing Organization Address City/[facility] Phone Number [facility] DE[facility] [address] [address] PATHOLOGY AND GENOMIC MEDICINE * Partial thromboplastin time, activated (04/25/2018 8:30 AM CDT) [facility] PTT 28.8 23.0 - 36.0 sec [facility] DEPARTMENT Comment: OF PATHOLOGY PTT therapeutic range for AND GENOMIC unfractionated heparin is MEDICINE 61.0-112.0 seconds which corresponds to Anti-Xa 0.3-0.7 U/ml. Specimen Blood Performing Organization Address City/[facility] Phone Number [facility] DE[facility] [address] [address] PATHOLOGY AND GENOMIC MEDICINE * Prothrombin time with INR (04/25/2018 8:30 AM CDT) [facility] Prothrombin 13.7 12.0 - 15.0 sec [facility] DEPARTMENT time OF PATHOLOGY AND GENOMIC MEDICINE INR 1.0 [facility] DEPARTMENT Comment: OF PATHOLOGY The International Normalized AND GENOMIC Ratio (INR) is a therapeutic MEDICINE monitoring tool for patients who are stable on oral anticoagulant therapy. An INR of 2.0-3.0 is suggested for deep vein thrombosis/pulmonary embolism. Specimen Blood Performing Organization Address City/State/Zipcode Phone Number [facility] DEPARTMENT [address] [address] PATHOLOGY AND GENOMIC MEDICINE * CBC with platelet and differential (04/25/2018 8:30 AM CDT) [facility] WBC 7.17 4.50 - 11.00 k/uL [facility] DEPARTMENT OF PATHOLOGY AND GENOMIC MEDICINE RBC 3.82 (L) 4.20 - 5.50 m/uL [facility] DEPARTMENT OF PATHOLOGY AND GENOMIC MEDICINE HGB 11.9 (L) 12.0 - 16.0 g/dL [facility] DEPARTMENT OF PATHOLOGY AND GENOMIC MEDICINE HCT 38.0 37.0 - 47.0 % [facility] DEPARTMENT OF PATHOLOGY AND GENOMIC MEDICINE MCV 99.5 82.0 - 100.0 fL [facility] DEPARTMENT OF PATHOLOGY AND GENOMIC MEDICINE MCH 31.2 27.0 - 34.0 pg [facility] DEPARTMENT OF PATHOLOGY AND GENOMIC MEDICINE MCHC 31.3 31.0 - 37.0 g/dL [facility] DEPARTMENT OF PATHOLOGY AND GENOMIC MEDICINE RDW - SD 58.5 (H) 37.0 - 55.0 fL [facility] DEPARTMENT OF PATHOLOGY AND GENOMIC MEDICINE MPV 12.0 8.8 - 13.2 fL [facility] DEPARTMENT OF PATHOLOGY AND GENOMIC MEDICINE Platelet count 167 150 - 400 k/uL [facility] DEPARTMENT OF PATHOLOGY AND GENOMIC MEDICINE Nucleated RBC 0.00 /100 WBC [facility] DEPARTMENT OF PATHOLOGY AND GENOMIC MEDICINE Neutrophils 75.8 (H) 39.0 - 69.0 % [facility] DEPARTMENT OF PATHOLOGY AND GENOMIC MEDICINE Lymphocytes 15.1 (L) 25.0 - 45.0 % [facility] DEPARTMENT OF PATHOLOGY AND GENOMIC MEDICINE Monocytes 6.6 0.0 - 10.0 % [facility] DEPARTMENT OF PATHOLOGY AND GENOMIC MEDICINE Eosinophils 1.5 0.0 - 5.0 % [facility] DEPARTMENT OF PATHOLOGY AND GENOMIC MEDICINE Basophils 0.6 0.0 - 1.0 % [facility] DEPARTMENT OF PATHOLOGY AND GENOMIC MEDICINE Immature 0.4Comment: "Immature 0.0 - 1.0 % [facility] DEPARTMENT granulocytes granulocytes" (promyelocytes, OF PATHOLOGY myelocytes, metamyelocytes) AND GENOMIC MEDICINE Specimen Blood Performing Organization Address City/State/Zipcode Phone Number [facility] DEPARTMENT OF [address] [place] [address] PATHOLOGY AND GENOMIC MEDICINE * Hemoglobin A1c (04/25/2018 8:30 AM CDT) Hemoglobin A1C 6.0 (H) 4.0 - 5.6 % [facility] Comment: OF PATHOLOGY HbA1c cutoffs for diagnosing AND GENOMIC diabetes: MEDICINE 4.0% - 5.6%=normal 5.7% - 6.4%=increased risk for diabetes (prediabetes) >=6.5%=diabetes Goals for glycemic control (ADA 2016) < 7.0%Target for non adults with diabetes. More or less stringent targets may be appropriate for individual patients. <7.5% Target for Children and adolescents with type 1 diabetes. Specimen Blood Performing Organization Address [facility] Phone Number [facility] [place] [address] PATHOLOGY AND GENOMIC MEDICINE * EKG 12-LEAD (04/25/2018 7:57 AM CDT) [facility] Ventricular 74 [facility] MUSE rate Atrial rate 74 [facility] MUSE CO interval 166 [facility] MUSE QRSD interval 106 [facility] MUSE QT interval 452 [facility] QTC interval 501 [facility] MUSE P axis 1 36 [facility] MUSE QRS axis 1 -26 [facility] MUSE T wave axis 122 [facility] MUSE EKG impression Normal sinus rhythm-ST & T [facility] MUSE wave abnormality, consider lateral ischemia- - Specimen Performing Organization Address [facility] Servicescode Phone Number [address] [address] * SAB class 1 & 2 with dilutions (04/25/2018 7:31 AM CDT) [facility] DE[facility] OF PATHOLOGY AND GENOMIC MEDICINE SAB class 1 & 2 See link below for PDF Lab [facility] with dilutions Report OF PATHOLOGY AND GENOMIC MEDICINE Specimen Performing Organization Address [facility] Phone Number [facility] [address] [address] PATHOLOGY AND GENOMIC MEDICINE * C1Q class 1 & 2 antibody (04/25/2018 7:31 AM CDT) [facility] OF PATHOLOGY AND GENOMIC MEDICINE C1Q class 1 & 2 See link below for PDF Lab [facility] DE[facility] antibody Report OF PATHOLOGY AND GENOMIC MEDICINE Specimen Performing Organization Address [facility] Servicescode Phone Number [address] [address] PATHOLOGY AND GENOMIC MEDICINE * Syphilis treponemal IgG (04/25/2018 7:31 AM CDT) [facility] Syphilis Non-reactiveComment: Non-reactive [facility] treponemal IgG Non-reactive: No serological OF PATHOLOGY evidence of Syphilis infection AND GENOMIC MEDICINE Specimen Serum Performing Organization Address [facility] Servicescode Phone Number [facility] [address] [address] PATHOLOGY AND [facility] * Narendra-Black virus antibody test (04/25/2018 7:31 AM CDT) Pathologist [facility] EBV Ab to viral Positive (A) Negative [facility] capsid Ag, IgG OF PATHOLOGY AND [facility] EBV Ab to viral Negative Negative [facility] capsid Ag, IgM OF PATHOLOGY AND [facility] EBV Ab to Positive (A) Negative [facility] nuclear Ag, IgG OF PATHOLOGY AND [facility] EBV Ab to early Positive (A) Negative [facility] (D) Ag, IgG OF PATHOLOGY AND [facility] Narendra-Black SEE COMMENT [facility] virus antibody Comment: OF PATHOLOGY interpretation Infection Status: Results may AND GENOMIC suggest EBV reactivation, MEDICINE although a recent primary EBV infection is not excluded. Specimen Serum Performing Organization Address City/State/Zipcode Phone Number [facility] OF [address] [place] [address] PATHOLOGY [facility] * HLA autologous crossmatch, AHG (04/25/2018 7:31 AM CDT) Pathologist [facility] DE[facility] OF PATHOLOGY AND [facility] HLA autologous See link below for PDF Lab [facility] crossmatch Report OF PATHOLOGY AND [facility] Specimen Performing Organization Address City/State/Zipcode Phone Number [facility] OF [address] [place] [address] * Hepatitis B surface Ab, quantitative (04/25/2018 7:31 AM CDT) Pathologist [facility] Hepatitis B 471.51 IU/L [facility] surface Ab Comment: The anti-HBs is greater than or equal to 10 IU/L. This patient has either had an antibody response to HBV vaccination, received a transfusion, or has recovered from HBV infection. This patient should be considered immune to hepatitis B. An anti-HBs result greater than or equal to 10 IU/L implies immunity. For post-vaccination antibody testing guidelines for the general public refer to MMWR September 10, 2005/Vol. 54(No. 16);1-23, and for healthcare workers refer to MMWR September 07, 2013/Vol. 62(No. 10);1-19. Reference Interval: anti-HBs 9.99 IU/L or less ....... Negative 10.00 IU/L or greater .... Positive Results greater than 1,000.00 IU/L are reported as greater than 1,000.00 IU/L. This assay should not be used for blood donor screening, associated re-entry protocols, or for screening Human Cell, Tissues and Cellular and Tissue-Based Products (HCT/P). Performed by [employer], [address] [place] [address] [email or web address], Gallito Rodriguez MD - Lab. Director Specimen Serum Performing Organization Address [facility]/Zipcode Phone Number [facility] [address] [place] [address] * Estimated GFR (04/25/2018 7:31 AM CDT) [facility] GFR Non Af Amer 6 (A) mL/min/1.73 m2 [facility] OF PATHOLOGY AND [employer] MEDICINE GFR Af Amer 7 (A) mL/min/1.73 m2 [facility] Comment: OF PATHOLOGY Chronic kidney disease: <60 AND GENOMIC mL/min/1.73m2 MEDICINE Kidney failure: <15 mL/min/1.73m2 The estimated GFR is calculated from the IDMS-traceable Modification of Diet in Renal Disease Equation. The accuracy of the calculation is poor when the creatinine is normal. Calculated values >90 mL/min/1.73m2 are not reported. This equation has not been validated in children (<18 years), women, the elderly (>70 years), or ethnic groups other than Caucasians and Americans. Specimen Plasma specimen Performing Organization Address [facility] Phone Number [facility] [place] [address] PATHOLOGY AND [facility] * Hepatitis C antibody (04/25/2018 7:31 AM CDT) [facility] Hepatitis C Ab Non-reactive Non-reactive [facility] DE[facility] OF PATHOLOGY AND GENOMIC MEDICINE Specimen Blood Performing Organization Address [facility]/Zipcode Phone Number [facility] [place] [address] PATHOLOGY AND [facility] * Cytomegalovirus Ab, IgM (04/25/2018 7:31 AM CDT) [facility] Cytomegalovirus NegativeComment: Negative: CMV Negative [facility] Ab, IgM IgM antibodies were not OF PATHOLOGY detected. AND GENOMIC MEDICINE Specimen Serum Performing Organization Address [facility]code Phone Number [facility] [place] [address] PATHOLOGY AND GENOMIC MEDICINE * Hepatitis B core antibody total (04/25/2018 7:31 AM CDT) Pathologist [facility] Hepatitis B Non-reactive Non-reactive [facility] core total Ab OF PATHOLOGY AND GENOMIC MEDICINE Specimen Blood Performing Organization Address City/[facility]code Phone Number [facility] [place] [address] PATHOLOGY AND GENOMIC MEDICINE * C-peptide (04/25/2018 7:31 AM CDT) [facility] C-peptide 11.8 (H) 1.1 - 4.4 ng/mL [facility] DE[facility] OF PATHOLOGY AND GENOMIC MEDICINE Specimen Plasma specimen Performing Organization Address [facility] Servicescode Phone Number [facility] [place] [address] PATHOLOGY AND [facility] MEDICINE * Hepatitis B surface antibody (04/25/2018 7:31 AM CDT) Pathologist [facility] Hepatitis B Reactive (A) Non-reactive [facility] surface Ab OF PATHOLOGY AND GENOMIC MEDICINE Specimen Blood Performing Organization Address [facility]code Phone Number [facility] [place] [address] PATHOLOGY AND [facility] MEDICINE * Hepatitis B surface antigen (04/25/2018 7:31 AM CDT) [facility] Hepatitis B Non-reactive Non-reactive [facility] surface Ag OF PATHOLOGY AND GENOMIC MEDICINE Specimen Blood Performing Organization Address [facility] Phone Number [facility] [place] [address] PATHOLOGY AND GENOMIC MEDICINE * Cytomegalovirus Ab, IgG (04/25/2018 7:31 AM CDT) Pathologist [facility] Cytomegalovirus NegativeComment: Negative; No Negative [facility] Ab, IgG CMV IgG antibodies were OF PATHOLOGY detected. AND GENOMIC MEDICINE Specimen Serum Performing Organization Address City/[facility]code Phone Number [facility] [place] [address] PATHOLOGY AND GENOMIC MEDICINE * Triglycerides (04/25/2018 7:31 AM CDT) [facility] Triglycerides 199 (H) <150 mg/dL [facility] DE[facility] OF PATHOLOGY AND GENOMIC MEDICINE Specimen Plasma specimen Performing Organization Address City/[facility]/Zipcode Phone Number [facility] [place] [address] PATHOLOGY AND GENOMIC MEDICINE * Phosphorus level (04/25/2018 7:31 AM CDT) Phosphorus 5.7 (H) 2.4 - 4.5 mg/dL [facility] DE[facility] OF PATHOLOGY AND GENOMIC MEDICINE Specimen Plasma specimen Performing Organization Address City/[facility] Phone Number [facility] [place] [address] PATHOLOGY AND GENOMIC MEDICINE * LDH (04/25/2018 7:31 AM CDT) Pathologist [facility] LDH 261 (H) 87 - 225 U/L [facility] DE[facility] OF PATHOLOGY AND GENOMIC MEDICINE Specimen Plasma specimen Performing Organization Address City/[facility] Phone Number [facility] [place] [address] PATHOLOGY AND GENOMIC MEDICINE * Cholesterol (04/25/2018 7:31 AM CDT) Pathologist [facility] Cholesterol 170 <200 mg/dL [facility] DE[facility]MENT OF PATHOLOGY AND GENOMIC MEDICINE Specimen Plasma specimen Performing Organization Address [facility] Phone Number [facility] [place] [address] PATHOLOGY AND GENOMIC MEDICINE * Comprehensive metabolic panel (04/25/2018 7:31 AM CDT) Sodium 141 135 - 148 mEq/L [facility] DE[facility] OF PATHOLOGY AND GENOMIC MEDICINE Potassium 4.2 3.5 - 5.0 mEq/L [facility] DE[facility] OF PATHOLOGY AND GENOMIC MEDICINE Chloride 93 (L) 98 - 112 mEq/L [facility] DE[facility]MENT OF PATHOLOGY AND GENOMIC MEDICINE CO2 32 (H) 24 - 31 mEq/L [facility] DE[facility] OF PATHOLOGY AND GENOMIC MEDICINE Anion gap 16@ANIO (H) 7 - 15 mEq/L [facility] DE[facility] OF PATHOLOGY AND GENOMIC MEDICINE BUN 36 (H) 6 - 20 mg/dL [facility] DE[facility] OF PATHOLOGY AND GENOMIC MEDICINE Creatinine 7.0 (H) 0.5 - 0.9 mg/dL [facility] DE[facility] OF PATHOLOGY AND GENOMIC MEDICINE Glucose 136 (H) 65 - 99 mg/dL [facility] DE[facility] OF PATHOLOGY AND GENOMIC MEDICINE Calcium 10.0 8.3 - 10.2 mg/dL [facility] DE[facility] OF PATHOLOGY AND GENOMIC MEDICINE Protein 8.6 (H) 6.3 - 8.3 g/dL [facility] Comment: OF PATHOLOGY Armstrong AND GENOMIC 4.6-7.0 g/dL MEDICINE 1 week 4.4-7.6 g/dL 7 months-1year 5.1-7.3 g/dL 1-2 years5.6-7 .5 g/dL >3 years6.0-8 .0 g/dL 18-150 6.3-8.3 g/dL Albumin 4.0 3.5 - 5.0 g/dL [facility] DE[facility] OF PATHOLOGY AND GENOMIC MEDICINE A/G ratio 0.9 0.7 - 3.8 [facility] DE[facility] OF PATHOLOGY AND GENOMIC MEDICINE Alkaline 96 35 - 104 U/L [facility] phosphatase OF PATHOLOGY AND GENOMIC MEDICINE AST 25 10 - 35 U/L [facility] DE[facility] OF PATHOLOGY AND GENOMIC MEDICINE ALT 17 5 - 50 U/L [facility] DE[facility] OF PATHOLOGY AND GENOMIC MEDICINE Total bilirubin 0.4 0.0 - 1.2 mg/dL [facility] DEPART[facility] OF PATHOLOGY AND GENOMIC MEDICINE Specimen Plasma specimen Performing Organization Address City/State/[facility] Phone Number [place] [phone] PATHOLOGY AND GENOMIC MEDICINE * Occult blood, stool (04/24/2018 8:00 AM CDT) Only the most recent of 3 results within the time period is included. Occult blood, Negative for occult blood. [facility] stool Comment: OF PATHOLOGY Specimen Information AND GENOMIC Specimen Source: Stool MEDICINE Specimen Site: Nonpreserved Specimen Stool - Nonpreserved Performing Organization Address City/State/Zipcode Phone Number [facility] DE[facility] [place] [phone] PATHOLOGY AND GENOMIC MEDICINE after 04/08/2018 Insurance Type Payer Benefit Subscriber ID Effective Phone Address Plan / Dates Group PPO CIGNA CIGNA PPO xxxxxxxxxxx 2011-P resent Medicare MEDICARE MEDICARE xxxxxxxxxx 2011-P [place], PART A AND resent [place] B Advance Directives Patient has advance care planning documents on file. For more information, aldo padilla contact: Lazaro Shah [address] [place], [place] [id number]
[2019-04-09 09:43] LABS: BASOPHILS % 0.3 % (0.0-1.0); EOSINOPHILS # (AUTO) 0.1 (0.0-0.4); EOSINOPHILS % 1.8 % (0.0-6.0); HEMATOCRIT 41.4 % (34.2-44.1); HEMOGLOBIN 13.3 g/dL (12.0-16.0); LYMPHOCYTES # (AUTO) 0.3 (1.0-3.2); LYMPHOCYTES % 4.6 % (18.0-39.1); MEAN CORPUSCULAR HEMOGLOBIN 30.8 pg (28-32); MEAN CORPUSCULAR HGB CONC 32.1 g/dL (31-35); MEAN CORPUSCULAR VOLUME 95.8 fL (81-99); MONOCYTES # (AUTO) 0.5 (0.2-0.8); MONOCYTES % 7.2 % (4.4-11.3); NEUTROPHILS # (AUTO) 5.6 (2.1-6.9); NEUTROPHILS % 85.3 % (38.7-80.0); PLATELET COUNT 107 x10e3/uL (140-360); RED BLOOD COUNT 4.32 x10e6/uL (3.6-5.1); RED CELL DISTRIBUTION WIDTH 13.7 % (11.7-14.4)
--- NOTE | 2019-04-09 09:56 | Diagnostic Imaging Report ---
EXAMINATION: CHEST SINGLE (PORTABLE) INDICATION: Chest pain COMPARISON: None FINDINGS: Study is limited by portable technique, patient body habitus and resulting underpenetration. TUBES and LINES: EKG leads overlie the chest. LUNGS: The lungs are moderately inflated. Mild interstitial pulmonary edema. No focal consolidation. PLEURA: No pleural effusion or pneumothorax. HEART AND MEDIASTINUM: The heart is enlarged. Atherosclerotic calcifications of the thoracic aorta. BONES AND SOFT TISSUES: No acute fracture or dislocation. UPPER ABDOMEN: No free air under the diaphragm. IMPRESSION: Cardiomegaly and mild interstitial pulmonary edema. Signed by: Dov Tilley MD on 04/09/2019 9:52 AM
[2019-04-09] MEDS ORDERED: ASPIRIN 81 MG CHEW TAB PO ONE (10:00)
[2019-04-09 10:02] LABS: INR 0.92; PROTHROMBIN TIME 12.9 seconds (11.9-14.5)
[2019-04-09 10:05] LABS: PARTIAL THROMBOPLASTIN TIME 26.2 seconds (23.8-35.5)
[2019-04-09 10:11] LABS: ALBUMIN/GLOBULIN RATIO 1.1 (0.8-2.0); ANION GAP 14.1 mmol/L (8-16); CALCIUM 10.9 mg/dL (8.4-10.2); CREATININE, SERUM 1.56 mg/dL (0.57-1.11); MAGNESIUM 2.4 MG/DL (1.3-2.1); POTASSIUM 4.1 mmol/L (3.5-5.1)
[2019-04-09 10:17] LABS: CREATINE KINASE MB 1.3 ng/mL (0-5.0)
[2019-04-09 10:45] LABS: BILIRUBIN,URINE NEGATIVE (NEGATIVE); CLARITY,URINE CLEAR (CLEAR); COLOR,URINE YELLOW (YELLOW); KETONES,URINE NEGATIVE (NEGATIVE); LEUKOCYTE ESTERASE ,URINE NEGATIVE (NEGATIVE); NITRITE,URINE NEGATIVE (NEGATIVE); PROTEIN,URINE DIPSTICK TRACE (NEGATIVE); URINE UROBILINOGEN 0.2 mg/dL (0.2 - 1)
[2019-04-09 10:56] LABS: BACTERIA,URINE MODERATE /HPF; EPITHELIAL CELLS,URINE MODERATE /LPF; RBC,URINE 0-5 /HPF (0-5)
[2019-04-09] MEDS ORDERED: FAMOTIDINE 20 MG/2 ML VIAL IV SCH (11:30)
[2019-04-09] MEDS ORDERED: MORPHINE SULFATE 2 MG/ML SYR 1ML IV PRN (11:30)
[2019-04-09] MEDS ORDERED: INSULIN LISPRO 100 UNIT/1 ML 3ML VIAL SQ SCH (11:30)
[2019-04-09] MEDS ORDERED: ONDANSETRON HCL INJ 2MG/ML 2ML 2 MG/ML VIAL IV PRN (11:30)
[2019-04-09] MEDS ORDERED: DEXTROSE 50% SYRINGE 50 ML IV PRN (11:30)
[2019-04-09] MEDS ORDERED: NITROGLYCERIN 0.4 MG SUBL SL PRN (11:30)
--- OUTSIDE RECORDS SUMMARY | 2019-04-09 11:39 | XMS REPORT | Clinical Summary ---
Author Author ASIA [facility] Address Unknown Phone Unavailable Care Team Providers Care Clinical Programmer Name Role Phone Sharpless PCP Allergies No [...] Lot Implanted Type Area Manufactur er 10/05/2019 [id number] / [id number] / Valve Heart Suleiman 3 26mm [id number] Valves Aorta MCDONNELL - [id number] LIFESCI Implanted: Qty: 1 on 01/23/2018 by Santos Mcdonald MD Results Not on fileafter 04/08/2018 Insurance Payer Benefit Subscriber ID Type Phone Address Plan / Group MEDICARE MEDICARE A xxxxxxxxxx Medicare B CIGNA - MGD CARE CIGNA COH xxxxxxxxxxx HMO/POS NETWORK Advance Directives Patient has advance care planning documents, and code status on file. For more i nformation, please contact: [facility] [address] [place] [address] Date Inactivated Comments Code Status Date Activated 01/25/2018 11:36 AM Full Code 01/23/2018 6:31 AM This code status was determined by: Patient
--- OUTSIDE RECORDS SUMMARY | 2019-04-09 11:39 | XMS REPORT | Clinical Summary ---
Author Author [facility] [employer] Organization [facility] Address Unknown Phone Unavailable Care Team Providers Care Locksmith Helper Name Role Phone Marshal Howe MD PCP [...] / Lot Implanted Type Area Manufactur er [id number] / / Clip Ligtng Weck Hemoclip Plus W/ Medical Left: Arm, WECK Tape Ti Sm - [id number] Clips for Upper CLOSURE Implanted: 03/18/2016 (Quantity not Internal SYSTEMS on file) Use [id number] / / Clip Ligtng Weck Hemoclip Plus W/ Medical Left: Arm, TELEFLEX Tape Ti Med - [id number] Clips for Upper MEDICAL Implanted: 03/18/2016 (Quantity not Internal on file) Use Procedures Comments Procedure Name Priority Date/Time Associated Diagnosis ECHOCARDIOGRAM 2D Routine 04/25/2018 ESRD (end stage renal COMPLETE W MMODE SPECTRAL 3:15 PM CDT disease) COLOR DOPPLER (10327) CT ANGIOGRAM ABDOMEN Routine 04/25/2018 ESRD (end [...] 3:15 PM CDT) Specimen Narrative Performed At [facility] Echocardiography Report [id number]Name:SUNG SIMPSON Pat.ID:[id number] .Date: 04/25/2018Refer.MD:NIKITA BEAN MD Exam Time: 2:40:00 PMStudy Type:Routine Echo Height:64inWeight:187lb BSA: 1.9 g5GHYBrm:1965,52Y Sex: FEMALEBP:139/78 HR:90 bpmSonogrphr: Yael Demarco RDCS Pat. Stat.:OutpatientStudy Status:Final Echo Event ID:[id number] Order ID:[id number] Reason for Study:Renal Transplant Evaluation History / [...] PA systolic pressure. MEASUREMENTS: 2D Parasternal Long [place] LVOT 2.1 cmLA Ds4.1 cm LVIDd5 cmIndex2.6 cm/m Ao Rtd 3.9 cm Index2.1 cm/m LVIDs3.2 cmLV Fzyf801.3 g(87-129) LV%fs 34.6 % LVM Tygbg293.3 g/m2 IVSd 1.6 cmRWT0.7 LVPWd1.7 cm LA [...] 8973.1 cm/s2 AV Mean G 14.5 mmHgAV ZiGi724 cm/s2 AV AC 77 msec (83-118) AV Area1.9 cm2(3-5) AV ET367 msec LVOT For Flow LVOT Area3.5 cm2 LVOT SV120.6 ml MTKZuyOzt456.4 cm/sHR67.1 bpm LVOTpkPG 7.3 mmHgLVOT CO8.1 l/min LVOTmnPG 4.1 mmHgLVOT CI4.3 l/m/m2 LVOT TVI34.8 cm MV For Flow/Valve Assess MV Area P1/2t1.9 cm2(4-6)MV Mean G5.5 mmHg MV pkVel 190.4 cm/sMV Dec T 332 msec MV pkPG 14.5 mmHgMV TVI53.1 cm Signed 04/26/2018 02:50 PM Scot Hilton M.D. Procedure Note Interface, Radiology Results In - 04/26/2018 2:50 PM CDT Echocardiography Report [id number] [place] [address] Pat.Name: SUNG SIMPSON Pat.ID: [id number] .Date: 04/25/2018 Refer.MD: NIKITA BEAN MD Exam Time: 2:40:00 PM Study Type:Routine Echo Height: 64in Weight: 187lb BSA: 1.9 m2 Age: 8 1965,52Y Sex: FEMALE BP: 139/78 HR: 90 bpm Sonogrphr: Yael Demarco RDCS Pat. Stat.:Outpatient Study Status:Final Echo Event ID:[id number] Order ID: [id number] Reason for Study:Renal Transplant Evaluation History / [...] PA systolic pressure. MEASUREMENTS: 2D Parasternal Long [place] LVOT 2.1 cm LA Ds 4.1 cm [...] PM Scot Hilton M.D. Performing Organization Address City/State/[place] Phone Number [facility] [address] [place] [address] * CTA Abdomen Pelvis W And Or [...] changes of the spine. IMPRESSION: Mild diverticulosis. [id number] Procedure Note Hm Interface, Radiology Results Incoming [...] changes of the spine. IMPRESSION: Mild diverticulosis. [facility]-[id number] Performing Organization Address City/[facility]/Zipcode Phone Number [facility] [address] [place] [address] * Parathyroid hormone (04/25/2018 11:00 AM CDT) PTH 320 (H) 15 - 65 pg/mL [facility] DEPARTMENT OF PATHOLOGY AND GENOMIC MEDICINE Specimen Blood Performing Organization Address [facility]/Zipcode Phone Number [facility] DEPARTMENT OF [address] [place] [address] PATHOLOGY AND GENOMIC MEDICINE * XR Chest 2 Vw (04/25/2018 9:30 AM CDT) Specimen Narrative Performed At EXAMINATION:XR CHEST 2 VW RADIANT CLINICAL HISTORY:N18.6 End stage renal disease, transplant evaluation update COMPARISON:None. IMPRESSION: The cardiomediastinal silhouette and central vasculature are within normal limits. Atherosclerotic calcifications in the thoracic aorta which is tortuous. The lungs are clear. Degenerative changes in the spine. [facility]-[id number] Procedure Note Interface, Radiology Results Incoming - 04/25/2018 9:39 AM CDT EXAMINATION: XR CHEST 2 VW CLINICAL HISTORY: N18.6 End stage renal disease, transplant evaluation update COMPARISON: None. IMPRESSION: The cardiomediastinal silhouette and central vasculature are within normal limits. Atherosclerotic calcifications in the thoracic aorta which is tortuous. The lungs are clear. Degenerative changes in the spine. [facility]-[id number] Performing Organization Address [facility]/Zipcode Phone Number [facility] [address] [place] [address] * TB T-SPOT (04/25/2018 8:50 AM CDT) TB T-SPOT SEE NOTE [facility] DEPARTMENT Comment: OF PATHOLOGY T-SPOT TUBERCULOSIS AND [...] FOR USE WITH T=SPOT.TB TEST. Performed by: [facility] Molecular Tuberculosis Laboratory [facility] ([id number]) [place], [place] [address] Specimen Blood Performing Organization Address City/[facility]/Zipcode Phone Number [facility] DEPARTMENT [address] [address] PATHOLOGY AND GENOMIC MEDICINE * Hepatitis C virus quantitative by PCR (04/25/2018 8:45 AM CDT) [facility] Hepatitis C Not-Detected Not-Detected IU/mL [facility] DEPARTMENT quantitative, OF PATHOLOGY PCR AND GENOMIC MEDICINE Hepatitis C See link below for PDF Lab [facility] DEPARTMENT quantitative, ReportComment: Case Number: OF PATHOLOGY PCR [id number] AND GENOMIC MEDICINE Specimen Blood Performing Organization Address City/[facility]/[place] Phone Number [facility] DEPARTMENT [address] [address] PATHOLOGY AND GENOMIC MEDICINE * Partial thromboplastin time, activated (04/25/2018 8:30 AM CDT) [facility] PTT 28.8 23.0 - 36.0 sec [facility] DEPARTMENT Comment: OF PATHOLOGY PTT therapeutic range for AND GENOMIC unfractionated heparin is MEDICINE 61.0-112.0 seconds which corresponds to Anti-Xa 0.3-0.7 U/ml. Specimen Blood Performing Organization Address City/[facility]/[place] Phone Number [facility] DEPARTMENT [address] [address] PATHOLOGY AND GENOMIC MEDICINE * Prothrombin time with INR (04/25/2018 8:30 AM CDT) [facility] Prothrombin 13.7 12.0 - 15.0 sec [facility] DEPARTMENT time OF PATHOLOGY AND GENOMIC MEDICINE INR 1.0 [facility] DEPARTMENT Comment: OF PATHOLOGY The International Normalized AND GENOMIC Ratio (INR) is a therapeutic MEDICINE monitoring tool for patients who are stable on oral anticoagulant therapy. An INR of 2.0-3.0 is suggested for deep vein thrombosis/pulmonary embolism. Specimen Blood Performing Organization Address City/State/Zipcode Phone Number [facility] DEPARTMENT [address] [address] PATHOLOGY AND GENOMIC MEDICINE * CBC with platelet and differential (04/25/2018 8:30 AM CDT) [facility] WBC 7.17 4.50 - 11.00 k/uL [facility] DEPARTMENT OF PATHOLOGY AND GENOMIC MEDICINE RBC 3.82 (L) 4.20 - 5.50 m/uL [facility] DEPARTMENT OF PATHOLOGY AND GENOMIC MEDICINE HGB 11.9 (L) 12.0 - 16.0 g/dL [facility] DEPARTMENT OF PATHOLOGY AND GENOMIC MEDICINE HCT 38.0 37.0 - 47.0 % [facility] DEPARTMENT OF PATHOLOGY AND GENOMIC MEDICINE MCV 99.5 82.0 - 100.0 fL [facility] DEPARTMENT OF PATHOLOGY AND GENOMIC MEDICINE MCH 31.2 27.0 - 34.0 pg [facility] DEPARTMENT OF PATHOLOGY AND GENOMIC MEDICINE MCHC 31.3 31.0 - 37.0 g/dL [facility] DEPARTMENT OF PATHOLOGY AND GENOMIC MEDICINE RDW - SD 58.5 (H) 37.0 - 55.0 fL [facility] DEPARTMENT OF PATHOLOGY AND GENOMIC MEDICINE MPV 12.0 8.8 - 13.2 fL [facility] DEPARTMENT OF PATHOLOGY AND GENOMIC MEDICINE Platelet count 167 150 - 400 k/uL [facility] DEPARTMENT OF PATHOLOGY AND GENOMIC MEDICINE Nucleated RBC 0.00 /100 WBC [facility] DEPARTMENT OF PATHOLOGY AND GENOMIC MEDICINE Neutrophils 75.8 (H) 39.0 - 69.0 % [facility] DEPARTMENT OF PATHOLOGY AND GENOMIC MEDICINE Lymphocytes 15.1 (L) 25.0 - 45.0 % [facility] DEPARTMENT OF PATHOLOGY AND GENOMIC MEDICINE Monocytes 6.6 0.0 - 10.0 % [facility] DEPARTMENT OF PATHOLOGY AND GENOMIC MEDICINE Eosinophils 1.5 0.0 - 5.0 % [facility] DEPARTMENT OF PATHOLOGY AND GENOMIC MEDICINE Basophils 0.6 0.0 - 1.0 % [facility] DEPARTMENT OF PATHOLOGY AND GENOMIC MEDICINE Immature 0.4Comment: "Immature 0.0 - 1.0 % [facility] DEPARTMENT granulocytes granulocytes" (promyelocytes, OF PATHOLOGY myelocytes, metamyelocytes) AND GENOMIC MEDICINE Specimen Blood Performing Organization Address City/State/Zipcode Phone Number [facility] DEPARTMENT OF [address] [place] [address] PATHOLOGY AND GENOMIC MEDICINE * Hemoglobin A1c (04/25/2018 8:30 AM CDT) Hemoglobin A1C 6.0 (H) 4.0 - 5.6 % [facility] DEPARTMENT Comment: OF PATHOLOGY HbA1c cutoffs for diagnosing AND GENOMIC diabetes: MEDICINE 4.0% - 5.6%=normal 5.7% - 6.4%=increased risk for diabetes (prediabetes) >=6.5%=diabetes Goals for glycemic control (ADA 2016) < 7.0%Target for non adults with diabetes. More or less stringent targets may be appropriate for individual patients. <7.5% Target for Children and adolescents with type 1 diabetes. Specimen Blood Performing Organization Address [facility]/[place] Phone Number [facility] [place] [address] PATHOLOGY AND GENOMIC MEDICINE * EKG 12-LEAD (04/25/2018 7:57 AM CDT) [facility] Ventricular 74 [facility] MUSE rate Atrial rate 74 [facility] MUSE MD interval 166 [facility] MUSE QRSD interval 106 HM MUSE QT interval 452 [facility] MUSE QTC interval 501 [facility] MUSE P axis 1 36 [facility] MUSE QRS axis 1 -26 [facility] MUSE T wave axis 122 [facility] MUSE EKG impression Normal sinus rhythm-ST & T [facility] MUSE wave abnormality, consider lateral ischemia- - Specimen Performing Organization Address [facility]/[place] Phone Number [address] [address] * SAB class 1 & 2 with dilutions (04/25/2018 7:31 AM CDT) [facility] DEPARTMENT OF PATHOLOGY AND GENOMIC MEDICINE SAB class 1 & 2 See link below for PDF Lab [facility] DEPARTMENT with dilutions Report OF PATHOLOGY AND GENOMIC MEDICINE Specimen Performing Organization Address [facility] Phone Number [facility] DEPARTMENT [address] [address] PATHOLOGY AND GENOMIC MEDICINE * C1Q class 1 & 2 antibody (04/25/2018 7:31 AM CDT) [facility] DEPARTMENT OF PATHOLOGY AND GENOMIC MEDICINE C1Q class 1 & 2 See link below for PDF Lab [facility] DEPARTMENT antibody Report OF PATHOLOGY AND GENOMIC MEDICINE Specimen Performing Organization Address [facility]/[place] Phone Number [address] [address] PATHOLOGY AND GENOMIC MEDICINE * Syphilis treponemal IgG (04/25/2018 7:31 AM CDT) [facility] Syphilis Non-reactiveComment: Non-reactive [facility] DEPARTMENT treponemal IgG Non-reactive: No serological OF PATHOLOGY evidence of Syphilis infection AND GENOMIC MEDICINE Specimen Serum Performing Organization Address [facility]/[place] Phone Number [facility] DEPARTMENT [address] [address] PATHOLOGY AND [facility] * Narendra-Black virus antibody test (04/25/2018 7:31 AM CDT) Pathologist [facility] EBV Ab to viral Positive (A) Negative [facility] DEPARTMENT capsid Ag, IgG OF PATHOLOGY AND [facility] EBV Ab to viral Negative Negative [facility] DEPARTMENT capsid Ag, IgM OF PATHOLOGY AND [facility] EBV Ab to Positive (A) Negative [facility] DEPARTMENT nuclear Ag, IgG OF PATHOLOGY AND [facility] EBV Ab to early Positive (A) Negative [facility] DEPARTMENT (D) Ag, IgG OF PATHOLOGY AND [facility] Narendra-Black SEE COMMENT [facility] DEPARTMENT virus antibody Comment: OF PATHOLOGY interpretation Infection Status: Results may AND GENOMIC suggest EBV reactivation, MEDICINE although a recent primary EBV infection is not excluded. Specimen Serum Performing Organization Address City/State/Zipcode Phone Number [facility] OF [address] [place] [address] PATHOLOGY [facility] * HLA autologous crossmatch, AHG (04/25/2018 7:31 AM CDT) Pathologist [facility] DEPARTMENT OF PATHOLOGY AND [facility] HLA autologous See link below for PDF Lab [facility] DEPARTMENT crossmatch Report OF PATHOLOGY AND [facility] Specimen Performing Organization Address City/State/Zipcode Phone Number [facility] OF [address] [place] [address] * Hepatitis B surface Ab, quantitative (04/25/2018 [...] Cellular and Tissue-Based Products (HCT/P). Performed by [facility], [address] [place] [address] [email or web address], Gallito Rodriguez MD - Lab. Director Specimen Serum Performing Organization Address [facility]/Zipcode Phone Number [facility] [address] [place] [address] * Estimated GFR (04/25/2018 7:31 AM CDT) [facility] GFR Non Af Amer 6 (A) mL/min/1.73 m2 [facility] DEPARTMENT OF PATHOLOGY AND [employer] MEDICINE GFR Af Amer 7 (A) mL/min/1.73 m2 [facility] DEPARTMENT Comment: OF PATHOLOGY Chronic kidney disease: [...] Americans. Specimen Plasma specimen Performing Organization Address [facility]/[place] Phone Number [facility] [place] [address] PATHOLOGY AND [facility] * Hepatitis C antibody (04/25/2018 7:31 AM CDT) [facility] Hepatitis C Ab Non-reactive Non-reactive [facility] DEPARTMENT OF PATHOLOGY AND GENOMIC MEDICINE Specimen Blood Performing Organization Address [facility]/Zipcode Phone Number [facility] [place] [address] PATHOLOGY AND [facility] * Cytomegalovirus Ab, IgM (04/25/2018 7:31 AM CDT) [facility] Cytomegalovirus NegativeComment: Negative: CMV Negative [facility] DEPARTMENT Ab, IgM IgM antibodies were not OF PATHOLOGY detected. AND GENOMIC MEDICINE Specimen Serum Performing Organization Address [facility]/[place] Phone Number [facility] [place] [address] PATHOLOGY AND GENOMIC MEDICINE * Hepatitis B core antibody total (04/25/2018 7:31 AM CDT) Pathologist [facility] Hepatitis B Non-reactive Non-reactive [facility] DEPARTMENT core total Ab OF PATHOLOGY AND GENOMIC MEDICINE Specimen Blood Performing Organization Address City/[facility]/[place] Phone Number [facility] [place] [address] PATHOLOGY AND GENOMIC MEDICINE * C-peptide (04/25/2018 7:31 AM CDT) [facility] C-peptide 11.8 (H) 1.1 - 4.4 ng/mL [facility] DEPARTMENT OF PATHOLOGY AND GENOMIC MEDICINE Specimen Plasma specimen Performing Organization Address [facility]/[place] Phone Number [facility] [place] [address] PATHOLOGY AND [facility] MEDICINE * Hepatitis B surface antibody (04/25/2018 7:31 AM CDT) Pathologist [facility] Hepatitis B Reactive (A) Non-reactive [facility] DEPARTMENT surface Ab OF PATHOLOGY AND GENOMIC MEDICINE Specimen Blood Performing Organization Address [facility]/[place] Phone Number [facility] [place] [address] PATHOLOGY AND [facility] MEDICINE * Hepatitis B surface antigen (04/25/2018 7:31 AM CDT) [facility] Hepatitis B Non-reactive Non-reactive [facility] DEPARTMENT surface Ag OF PATHOLOGY AND GENOMIC MEDICINE Specimen Blood Performing Organization Address [facility] Phone Number [facility] [place] [address] PATHOLOGY AND GENOMIC MEDICINE * Cytomegalovirus Ab, IgG (04/25/2018 7:31 AM CDT) Pathologist [facility] Cytomegalovirus NegativeComment: Negative; No Negative [facility] DEPARTMENT Ab, IgG CMV IgG antibodies were OF PATHOLOGY detected. AND GENOMIC MEDICINE Specimen Serum Performing Organization Address City/[facility]/[place] Phone Number [facility] [place] [address] PATHOLOGY AND GENOMIC MEDICINE * Triglycerides (04/25/2018 7:31 AM CDT) [facility] Triglycerides 199 (H) <150 mg/dL [facility] DEPARTMENT OF PATHOLOGY AND GENOMIC MEDICINE Specimen Plasma specimen Performing Organization Address City/[facility]/Zipcode Phone Number [facility] [place] [address] PATHOLOGY AND GENOMIC MEDICINE * Phosphorus level (04/25/2018 7:31 AM CDT) Phosphorus 5.7 (H) 2.4 - 4.5 mg/dL [facility] DEPARTMENT OF PATHOLOGY AND GENOMIC MEDICINE Specimen Plasma specimen Performing Organization Address City/[facility]/[place] Phone Number [facility] [place] [address] PATHOLOGY AND GENOMIC MEDICINE * LDH (04/25/2018 7:31 AM CDT) Pathologist [facility] LDH 261 (H) 87 - 225 U/L [facility] DEPARTMENT OF PATHOLOGY AND GENOMIC MEDICINE Specimen Plasma specimen Performing Organization Address City/[facility]/[place] Phone Number [facility] [place] [address] PATHOLOGY AND GENOMIC MEDICINE * Cholesterol (04/25/2018 7:31 AM CDT) Pathologist [facility] Cholesterol 170 <200 mg/dL [facility] DEPARTMENT OF PATHOLOGY AND GENOMIC MEDICINE Specimen Plasma specimen Performing Organization Address [facility] Phone Number [facility] [place] [address] PATHOLOGY AND GENOMIC MEDICINE * Comprehensive metabolic panel (04/25/2018 7:31 AM CDT) Sodium 141 135 - 148 mEq/L [facility] DEPARTMENT OF PATHOLOGY AND GENOMIC MEDICINE Potassium 4.2 3.5 - 5.0 mEq/L [facility] DEPARTMENT OF PATHOLOGY AND GENOMIC MEDICINE Chloride 93 (L) 98 - 112 mEq/L [facility] DEPARTMENT OF PATHOLOGY AND GENOMIC MEDICINE CO2 32 (H) 24 - 31 mEq/L [facility] DEPARTMENT OF PATHOLOGY AND GENOMIC MEDICINE Anion gap 16@ANIO (H) 7 - 15 mEq/L [facility] DEPARTMENT OF PATHOLOGY AND GENOMIC MEDICINE BUN 36 (H) 6 - 20 mg/dL [facility] DEPARTMENT OF PATHOLOGY AND GENOMIC MEDICINE Creatinine 7.0 (H) 0.5 - 0.9 mg/dL [facility] DEPARTMENT OF PATHOLOGY AND GENOMIC MEDICINE Glucose 136 (H) 65 - 99 mg/dL [facility] DEPARTMENT OF PATHOLOGY AND GENOMIC MEDICINE Calcium 10.0 8.3 - 10.2 mg/dL [facility] DEPARTMENT OF PATHOLOGY AND GENOMIC MEDICINE Protein 8.6 (H) 6.3 - 8.3 g/dL [facility] DEPARTMENT Comment: OF PATHOLOGY [place] AND GENOMIC 4.6-7.0 g/dL MEDICINE 1 week 4.4-7.6 g/dL 7 months-1year 5.1-7.3 g/dL 1-2 years5.6-7 .5 g/dL >3 years6.0-8 .0 g/dL 18-150 6.3-8.3 g/dL Albumin 4.0 3.5 - 5.0 g/dL [facility] DEPARTMENT OF PATHOLOGY AND GENOMIC MEDICINE A/G ratio 0.9 0.7 - 3.8 [facility] DEPARTMENT OF PATHOLOGY AND GENOMIC MEDICINE Alkaline 96 35 - 104 U/L [facility] DEPARTMENT phosphatase OF PATHOLOGY AND GENOMIC MEDICINE AST 25 10 - 35 U/L [facility] DEPARTMENT OF PATHOLOGY AND GENOMIC MEDICINE ALT 17 5 - 50 U/L [facility] DEPARTMENT OF PATHOLOGY AND GENOMIC MEDICINE Total bilirubin 0.4 0.0 - 1.2 mg/dL [facility] DEPARTMENT OF PATHOLOGY AND GENOMIC MEDICINE Specimen Plasma specimen Performing Organization Address City/State/[place] Phone Number [place] [phone] PATHOLOGY AND GENOMIC MEDICINE * Occult blood, stool (04/24/2018 8:00 AM CDT) Only the most recent of 3 results within the time period is included. Occult blood, Negative for occult blood. [facility] DEPARTMENT stool Comment: OF PATHOLOGY Specimen Information AND GENOMIC Specimen Source: Stool MEDICINE Specimen Site: Nonpreserved Specimen Stool - Nonpreserved Performing Organization Address City/State/Zipcode Phone Number [facility] DEPARTMENT [place] [phone] PATHOLOGY AND GENOMIC MEDICINE after 04/08/2018 Insurance Type Payer Benefit Subscriber ID Effective Phone Address Plan / Dates Group PPO CIGNA CIGNA PPO xxxxxxxxxxx [id number] resent Medicare MEDICARE MEDICARE xxxxxxxxxx 2011-P [place], PART A AND resent [place] B Advance Directives Patient has advance care planning documents on file. For more information, aldo padilla contact: Lazaro Shah [address] [place], [place] [id number]
[2019-04-09] MEDS: AMLODIPINE BESYLATE 5 MG TAB PO SCH (13:06)
[2019-04-09] MEDS: CARVEDILOL 3.125 MG TAB PO SCH (13:06)
--- NOTE | 2019-04-09 13:46 | History and Physical ---
PRIMARY CARE DOCTOR: Dr. Leonard King. CHIEF COMPLAINT: Chest pain. HISTORY OF PRESENT ILLNESS: This is a 53-year-old woman, who came in complaining of left-sided chest pain for the last two weeks. Initially, it comes and goes and only lasting for seconds. She could not really describe the discomfort. She stated it is not a pressure, it is not sharp pain. No radiation. No nausea, vomiting. No dizziness. No diaphoresis. No shortness of breath with that and this week, the pain has been better until this morning about [address] to work. The patient had another episode, however, this time more severe and lasted longer. Initially, she was going to continue driving to work. However, she got concerned and she turned around and came back home. The patient initially went to [facility] in [place] where EKG was done and the patient was told to come to the emergency room. Subsequently, currently now the pain has pretty much resolved. The patient did receive aspirin. She normally does not take aspirin on a daily basis. As far as she knows, she never had any heart trouble in the past other than the TAVR. She did in January last year. The patient also had a renal transplant in April of last year. The patient was on dialysis at one time. PAST MEDICAL AND SURGICAL HISTORY: 1. Renal transplant. 2. Diabetes. 3. Status post TAVR. 4. Hypertension. 5. Cataract surgery. 6. Left AV fistula placement many years ago. MEDICATIONS: Please see medication reconciliation form. ALLERGIES: NONE. SOCIAL HISTORY: Does not smoke. FAMILY HISTORY: Positive for diabetes. PHYSICAL EXAMINATION: VITAL SIGNS: Temperature 98.6, pulse 67, respiratory rate 16, blood pressure 161/71. GENERAL: No acute distress. SKIN: No rash. HEENT: Oropharynx is clear. The patient is anicteric. NECK: Supple. LUNGS: Clear. HEART: Regular rate and rhythm. Normal S1, S2. ABDOMEN: Soft, nontender. : Deferred. MUSCULOSKELETAL: Painless range of motion. EXTREMITIES: No edema. NEUROLOGICAL: Alert and oriented x3. Cranial nerves II to XII grossly intact. PSYCHIATRIC: No hallucination. LABORATORY DATA: Chest x-ray shows cardiomegaly with possible mild pulmonary edema. White count of 6.5, hemoglobin 13, platelet count 107. PT, PTT are normal. Creatinine is 1.56. Sugar is 168. The beta natriuretic peptide is 135.5. ASSESSMENT AND PLAN: 1. Atypical chest pain. However, given her medical history, we will consult Cardiology for evaluation. We will get an echocardiogram as well. Repeat troponin, check lipid panel. Continue aspirin, beta-mariana, and statin. 2. Mild thrombocytopenia, currently, no evidence of bleeding. I will monitor. 3. Renal transplant. The patient will consult Nephrology. 4. Cataract surgery. The patient may continue her home eye drops. 5. Diabetes. We will start sliding scale. If uncontrolled, we will restart her home insulin regimen. 6. GI, DVT prophylaxis. Risk not indicated at this time. 7. Her likely CKD, however, unclear what her baseline is. We will repeat creatinine in the morning. MD DARÍO Rubio/MITCHEL /[id number] cc: [facility] REVIEW OF SYSTEMS: Ten points review of systems done, unremarkable other than what has been stated in the HPI. MTDD
--- NOTE | 2019-04-09 15:52 | Consultation ---
DATE OF CONSULTATION: 04/09/2019 Cardiology Consultation REQUESTING PHYSICIAN: Dr. Abebe. REASON FOR CONSULTATION: Chest discomfort. HISTORY OF PRESENT ILLNESS: Ms. Simpson is a 53-year-old lady with past medical history of hypertension essential, previous end-stage renal disease status post cadaveric renal transplantation on May 04, 2018, prior history of TAVR for aortic stenosis on January 23, 2018, by Dr. Mcdonald with preprocedural evaluation with coronary angiography showing patent coronaries, type 2 diabetes complications. The patient was in her usual state of health and reports that for the past two weeks she has been having intermittent tickling sensation of the left parasternal chest wall region upper chest without any radiations, it would last minutes at a time. The patient had an episode that lasted 2 hours today and went to the PCP for further care and evaluation. EKG showed nonspecific T-wave inversions in 1 and aVL and was advised to come to the hospital for further care and management. At the present time, the patient seems to be feeling completely fine. We had biomarkers that are strongly negative with a troponin of 0.014 and EKG showing no ischemia. She maintains that she is doing well. We had a long discussion in terms of management options. PAST MEDICAL HISTORY: 1. Hypertension, essential. 2. Hypercholesterolemia. 3. Type 2 diabetes with complications. 4. End-stage renal disease, previously on hemodialysis for eight years via left arm fistula, status post cadaveric renal transplant on May 04, 2019. 5. History of transfemoral TAVR on January 23, 2018, at [facility]. PAST SURGICAL HISTORY: 1. History of TAVR on January 23, 2018. 2. History of renal transplant on May 04, 2018. 3. History of bilateral cataract surgery. FAMILY HISTORY: Mother at 60 with diabetic complications. Father at the age of 67, also with diabetic complications. SOCIAL HISTORY: She is a lifelong nonsmoker. Denies any alcohol or illicit drug use. ALLERGIES: NO KNOWN DRUG ALLERGIES. HOME MEDICATIONS: As far as I can gather, she is on Coreg 12.5 mg b.i.d., Norvasc 10 mg daily, atorvastatin 20 mg at bedtime, subcu insulin, Myfortic two pills q.a.m. and one pill q.p.m., 5 mg daily, prednisone 5 mg daily. REVIEW OF SYSTEMS: GENERAL: Denies any fevers, chills, or any weight changes. HEENT: No headaches, visual complaints, sore throat, or stuffy nose. RESPIRATORY: Denies any pleuritic component to chest pain. Has occasional nonproductive cough. CARDIOVASCULAR: As per HPI. Denies any syncope or near syncope. GI: Denies any abdominal pain, bright red blood per rectum, melena, hematemesis, nausea, or vomiting. : Denies any dysuria, pyuria, changes in urinary frequency. MUSCULOSKELETAL: Denies any back pains, leg swelling. ENDOCRINE: Denies any heat or cold intolerance. Positive for diabetes. SKIN: No rashes. ID: Positive on immunosuppressive therapy. NEUROLOGIC: Denies any focal weakness, numbness, tingling, seizures, headache, TIA or stroke. Remainder of review of systems is negative or otherwise mentioned. PHYSICAL EXAMINATION: VITAL SIGNS: Height of 63 inches, weight of 218 pounds, BMI of 38.6. Temperature of 98.6, pulse of 67, respiratory rate of 16, blood pressure of 161/71, and O2 saturation of 100% on room air. GENERAL: This is a well-nourished, well-developed, obese lady, who is currently in no apparent distress. HEENT: Normocephalic, atraumatic. Pupils are equal, round, and reactive to light. Extraocular movements are intact. Oropharynx is clear. There is old cataract lenses noted bilaterally. NECK: No elevation in jugular venous pulsation. No carotid bruits. CARDIOVASCULAR: Regular rate and rhythm. Normal S1, S2. A 2/6 systolic murmur at the left lower sternal border. LUNGS: Largely clear to auscultation bilaterally with good air entry. There is no chest wall tenderness to palpation. ABDOMEN: Soft, nontender, obese with normoactive bowel sounds. No hepatosplenomegaly. There is a right lower quadrant scar from her renal transplant. EXTREMITIES: Warm with 1 to 2+ right radial pulse, 1+ left radial pulse. Left arm AV fistula noted. 1+ femoral pulses, 1+ pedal pulses. NEUROLOGIC: Cranial nerves 2 through 12 are intact. Strength is 5/5. Grossly nonfocal. PSYCH: Normal. Fluent speech. Appropriate affect. No anxiety or delusions. LABORATORY DATA: White count 16.5, hemoglobin 13.3, hematocrit 41.4, platelets of 107. Sodium 140, potassium 4.1, chloride 105, bicarb of 25, BUN 36, creatinine 1.56, glucose of 168, calcium of 10.9, magnesium of 2.4. AST 23, ALT 42, alkaline phosphatase 99, total protein of 7.5, albumin of 4.0. BNP is 136. Troponin is 0.014. INR 0.92. UA shows 6-10 white cells. Chest x-ray shows mild interstitial pulmonary edema pattern. EKG reveals normal sinus rhythm and nonspecific T-wave inversion in 1 and aVL. Echo reviewed revealing EF of about 60%. Severe mitral annular calcification with [id number] mitral stenosis. There is a TAVR valve that appears to be well functioning. DIAGNOSES: 1. Chest pain, atypical for angina. 2. Prior history of ischemic cardiac evaluation prior to TAVR and renal transplant that was unremarkable at [facility]. 3. Status post transfemoral aortic valve replacement procedure, TAVR. 4. Type 2 diabetes with complication. 5. Hypercholesterolemia. 6. Prior history of dialysis for eight years via left arm fistula. PLAN/RECOMMENDATIONS: 1. From a cardiovascular standpoint, chest pain symptoms are very atypical for angina. Has had one strongly negative cardiac biomarker and we will check one more, but suspect we will rule out. 2. Overall, we had a long discussion in terms of management options for her chest pain symptoms and the patient has expressed a strong desire to follow up with Dr. Mcdonald, her primary negotiator, who knows her history better than us, which is not unreasonable. Therefore, we are going to defer ischemic evaluation. 3. In her favor is the relatively recent definitive ischemic evaluation prior to her TAVR and renal transplantation, which was unremarkable. 4. Aggressive risk factor modification and medical therapy abdicated. 5. We will recommend placing her back on her antirejection medications for her kidney transplant. 6. Case discussed with Dr. Abebe. MD JAMES Kilpatrick/MITCHEL /[id number]
--- NOTE | 2019-04-09 16:12 | Consultation ---
DATE OF CONSULTATION: 04/09/2019 The patient is seen in the emergency room. HISTORY OF PRESENT ILLNESS: A 53-year-old lady with underlying history of type 2 diabetes, hypertension, status post donor kidney transplant on May 06, 2018 at [facility], maintained on Myfortic 720 mg twice a day Envarsus, long-acting tacrolimus 5 mg daily, prednisone 5 mg daily. She came in with left-sided chest pain. She is status post TAVR, has had left AV fistula, history of hypertension. Currently asymptomatic. Denies shortness of breath, nausea, vomiting, headache, fever, chills, chest pains or shortness of breath. ALLERGIES: NO APPARENT DRUG ALLERGIES. SOCIAL HISTORY: Does not smoke or drink. FAMILY HISTORY: Both mother and sister are . Both had diabetes. CURRENT MEDICATIONS: Amlodipine 10 mg daily, aspirin 81 mg daily, carvedilol 12.5 p.o. b.i.d., famotidine 20 mg IV q.12, Humalog insulin, morphine p.r.n., nitroglycerin p.r.n., ondansetron p.r.n. PHYSICAL EXAMINATION: GENERAL: Awake, alert, lying supine, in no apparent distress. VITAL SIGNS: Blood pressure 164/73, pulse is 70, respiratory rate 18, oxygen saturation 100% on room air. HEAD and NECK: Cornea clear. Oral mucosa moist. Neck veins flat. No JVD. LUNGS: Relatively clear. HEART: S1, S2 audible. ABDOMEN: Otherwise soft, nontender. EXTREMITIES: Lower extremity, no edema. LABORATORY DATA: Show white count 6.4, hemoglobin 13.3. BNP 135 with a CK of 1.30. Magnesium level 2.4, calcium 10.9 with a creatinine 1.56, BUN 36. Potassium 4.1. Underlying hypercalcemia appears multifactorial. Urinalysis shows evidence of specific gravity of 1.025, appears relatively concentrated and clinically patient appears relatively dry. IMPRESSION AND PLAN: Cadaveric renal transplant. Plan on starting on IV normal saline and hydration. We will recheck calcium in the morning to see if it corrects with IV hydration. We will send an intact PTH level as well. Chest pain workup per primary care physician and Cardiology. Has acute on chronic kidney failure, cadaveric renal transplant, chronic kidney disease 3, chronic rejection. Hold off on any calcium supplementation at this point in time. MD JONATHAN Blancas/NILSONL /[id number]
[2019-04-09 16:15] VITALS: BP 187/77
--- NOTE | 2019-04-09 16:15 | NUR ---
PATIENT RECEIVED FROM ER PER STRETCHER. ALERT AND VERBALLY RESPONSIVE. ABLE TO TRANSFER SELF TO BED. DENIED PAIN OR DISCOMFORT. SKIN WARM AND DRY TO TOUCH, RESPIRATION EVEN AND UNLABORED, ABDOMEN SOFT AND NON DISTENDED. PATIENT ORIENTED TO SURROUNDINGS. BED IN LOWER POSITION AND LOCKED. CALL LIGHT AT REACH, INSTRUCTED TO CALL FOR ASSISTANCE NEEDED.
[2019-04-09 16:21] VITALS: BP 187/77
[2019-04-09] MEDS: INSULIN LISPRO 100 UNIT/1 ML 3ML VIAL SQ SCH ×2 (17:00→21:55)
[2019-04-09] MEDS: SODIUM CHLORIDE 0.9% 1000ML 1,000 ML IV SCH (17:49)
[2019-04-09 18:53] LABS: CREATINE KINASE MB 1.2 ng/mL (0-5.0)
[2019-04-09] MEDS ORDERED: ATORVASTATIN 20 MG TAB PO SCH (21:00)
[2019-04-09 21:30] VITALS: BP 162/70
--- NOTE | 2019-04-09 21:30 | NUR ---
PATIENT IS A0X4, NO RESPIRATORY DISTRESS NOTED. PATIENT COMPLAINS OF NO PAIN AT THIS TIME, BOTH SIDE RAILS ARE UP, CALL LIGHT WITHIN REACH, WILL CONTINUE TO MONITOR.
[2019-04-10] MEDS: CARVEDILOL 3.125 MG TAB PO SCH ×2 (00:38→12:37)
--- NOTE | 2019-04-10 00:40 | NUR ---
PATIENT RESTING IN BED, BOTH EYES ARE CLOSED. NO DISTRESS NOTED, NO COMPLAINTS OF PAIN. BOTH SIDE RAILS ARE UP, BED LOCKED AND LOW, CALL LIGHT WITHIN REACH, WILL CONTINUE TO MONITOR.
[2019-04-10 02:07] VITALS: BP 142/65
[2019-04-10] MEDS: SODIUM CHLORIDE 0.9% 1000ML 1,000 ML IV SCH (02:28)
[2019-04-10 04:00] VITALS: BP 140/70
[2019-04-10 04:34] LABS: CREATINE KINASE MB 0.9 ng/mL (0-5.0)
[2019-04-10 06:05] LABS: BASOPHILS % 0.5 % (0.0-1.0); EOSINOPHILS # (AUTO) 0.1 (0.0-0.4); HEMOGLOBIN 11.4 g/dL (12.0-16.0); LYMPHOCYTES # (AUTO) 0.4 (1.0-3.2); LYMPHOCYTES % 5.9 % (18.0-39.1); MEAN CORPUSCULAR HEMOGLOBIN 30.6 pg (28-32); MEAN CORPUSCULAR HGB CONC 31.7 g/dL (31-35); MEAN CORPUSCULAR VOLUME 96.5 fL (81-99); MONOCYTES # (AUTO) 0.6 (0.2-0.8); MONOCYTES % 8.8 % (4.4-11.3); NEUTROPHILS # (AUTO) 5.3 (2.1-6.9); NEUTROPHILS % 82.3 % (38.7-80.0); PLATELET COUNT 113 x10e3/uL (140-360); RED BLOOD COUNT 3.73 x10e6/uL (3.6-5.1); RED CELL DISTRIBUTION WIDTH 13.7 % (11.7-14.4)
[2019-04-10 06:35] LABS: ALANINE AMINOTRANSFERASE 34 IU/L (0-55); ALBUMIN 3.2 g/dL (3.5-5.0); ALBUMIN/GLOBULIN RATIO 1.1 (0.8-2.0); ALKALINE PHOSPHATASE 82 IU/L (40-150); ANION GAP 13.3 mmol/L (8-16); BLOOD UREA NITROGEN 34 mg/dL (7-26); BUN/CREATININE RATIO 26 (6-25); CALCIUM 9.8 mg/dL (8.4-10.2); CARBON DIOXIDE 21 mmol/L (22-29); CHLORIDE 108 mmol/L (98-107); CHOL/HDL RATIO 5.7 (3.0-3.6); CHOLESTEROL 244 MD/DL (0-199); CREATININE, SERUM 1.32 mg/dL (0.57-1.11); EST GLOMERULAR FILTRATION RATE 42 ML/MIN (60-); GLUCOSE 198 mg/dL (74-118); HDL CHOLESTEROL 43 MG/DL (40-60); POTASSIUM 4.3 mmol/L (3.5-5.1); SODIUM 138 mmol/L (136-145); TRIGLYCERIDES 519 MG/DL (0-149)
--- NOTE | 2019-04-10 07:14 | NUR ---
PATIENT IN BED WITH HEAD OF BED ELEVATED WATCHING TV, NO DISTRESS NOTED. DENIED PAIN OR DISCOMFORT. LEFT LIMB ALERT IN PLACE FOR OLD FISTULA. BED IN LOWER POSITION, CALL LIGHT AT REACH.
[2019-04-10 07:15] VITALS: BP 173/73
[2019-04-10] MEDS: INSULIN LISPRO 100 UNIT/1 ML 3ML VIAL SQ SCH ×2 (07:30→11:30)
[2019-04-10 08:22] VITALS: BP 173/73
[2019-04-10] MEDS ORDERED: ASPIRIN 81 MG ENTERIC COATED PO SCH (09:00)
[2019-04-10] MEDS: AMLODIPINE BESYLATE 5 MG TAB PO SCH (09:06)
[2019-04-10 09:27] LABS: BAND NEUTROPHILS % (MANUAL) 5 %; LYMPHOCYTES % (MANUAL) 5 % (19-48); MONOCYTES % (MANUAL) 4 % (3.4-9.0); NEUTROPHILS % (MANUAL) 86 % (40-74)
[2019-04-10 09:28] LABS: PLATELET ESTIMATE SLIGHTLY DECREASED; PLATELET MORPHOLOGY COMMENT NORMAL; RBC MORPHOLOGY COMMENT NORMAL
[2019-04-10 11:40] VITALS: BP 131/61
--- NOTE | 2019-04-10 11:41 | NUR ---
PATIENT ASSISTED WITH SHOWER, BED LINENS CHANGED. IN BED RESTING WITH NO DISTRESS. CALL LIGHT AT REACH.
--- NOTE | 2019-04-10 14:37 | Discharge Summary ---
PRIMARY CARE DOCTOR: Dr. Leonard King. FINAL DIAGNOSIS: Noncardiac chest pain. SECONDARY DIAGNOSES: 1. Chronic mild stable thrombocytopenia. 2. Renal transplant last year. 3. Diabetes. 4. Mild acute kidney injury, resolved. 5. Stage 3 chronic kidney disease. 6. Hypertriglyceridemia. CONSULTANTS: 1. Dr. Mcclure, Nephrology. 2. Dr. Alvarez, Cardiology. PROCEDURES/STUDIES PERFORMED: Echocardiogram which is benign. HISTORY: Per H and P. HOSPITAL COURSE: The patient was admitted. Her chest pain went away. Her troponins are negative x3, therefore no myocardial infarction. Her EKG remained unchanged from last year. The patient was evaluated by Cardiology, the patient can go home, she has followup appointment with her [facility] boiler house operator tomorrow. Her triglyceride did come back to be 519. I have printed a copy, she will take that to her boiler house operator tomorrow. The patient initially came in with a creatinine of 1.56, with hydration came down to 1.32. Calcium was 10.9, after hydration it is normal at 9.8. The patient was seen and examined today. CONDITION ON DISCHARGE: Stable. DISCHARGE MEDICATIONS: Please see medication reconciliation form. MD DARÍO Rubio/MITCHEL /[id number] cc: [facility]
--- NOTE | 2019-04-10 14:40 | NUR ---
PATIENT DISCHARGED HOME. DISCHARGE INSTRUCTIONS AND FOLLOW UP GIVEN TO PATIENT, SHE VERBALIZED UNDERSTANDING. IV TO RIGHT FOREARM REMOVED WITH TIP INTACT. ALL PERSONAL ITEMS TAKEN WITH PATIENT. REFUSED WHEEL CHAIR, BUT WAS ACCOMPANIED BY HOSPITAL STAFF TO FRONT LOBBY IN STABLE CONDITION.
== END 2019-04-10 14:35 | disposition home or self-care (01) ==
LOC: ER 08:55 → ERHOLD 11:36 → MED/SURG3 16:03
PROVIDERS: ADMIT Internal Medicine; ATTEND Internal Medicine
DX: T86.11 Kidney transplant rejection (principal); E11.22 Type 2 diabetes mellitus with diabetic chronic kidney disease; I12.9 Hypertensive chronic kidney disease with stage 1 through stage 4 chronic kidney disease, or unspecified chronic kidney disease; N18.3 Chronic kidney disease, stage 3 (moderate); E78.1 Pure hyperglyceridemia; N17.9 Acute kidney failure, unspecified; Z79.01 Long term (current) use of anticoagulants; Z95.2 Presence of prosthetic heart valve; Z68.43 Body mass index [BMI] 50.0-59.9, adult
CPT/HCPCS: 36415 ×2; 71045; 80053 ×2; 80061; 81001; 82550 ×2; 82553 ×2; 82948 ×2; 83735; 83880; 83970; 84484 ×2; 85025 ×2; 85610; 85730; 93005; 93306; 99284; G0378 ×2; J7030 ×2